=== PATIENT | male | born 1935 | race Caucasian/White ===

== ENCOUNTER 2017-07-08 20:07 | Inpatient (IN) ==
[2017-07-08] MEDS ORDERED: MORPHINE SULFATE 4mg INJECTION IM ONE (20:48)
[2017-07-08] MEDS ORDERED: ONDANSETRON ODT 4 MG TABLET PO ONE (20:48)
--- NOTE | 2017-07-08 20:53 | Emergency Department Report ---
Lower Extremity Injury HPI - General Chief Complaint: Extremity Injury, Lower Stated Complaint: poss broken hip pt fell Time Seen by Provider: 07/08/17 20:45 Source: patient Mode of arrival: wheelchair Limitations: no limitations - History of Present Illness HPI Narrative: 81yo man presents to the ER for left hip pain. Pt was trying to help prevent his from falling earlier tonight. In the process, pt fell himself. Now has left hip pain with any movement. Has a h/o right hip pain and prior fx with repair. MD complaint: hip injury Onset (ago): hour(s) Injury: Left: hip Type of Injury: blunt Place: home Severity: similar to previous episodes Severity scale (1-10): 8 Relieving factors: immobilization Exacerbating factors: movement Context: fall Associated symptoms: unable to bear weight Other symptoms: none - Related Data Home Medications Medication Instructions Recorded Confirmed Amlodipine Besylate [Norvasc] 2.5 mg PO BID #0 tab 11/22/13 07/08/17 Aspirin [Aspir 81] 81 mg PO DAILY #0 tab 11/22/13 07/08/17 Niacin (Inositol Niacinate) 1,000 mg PO BID 07/08/17 07/08/17 [Niacin 500 mg Capsule] Nitroglycerin 0.4 mg PO Q5M PRN 07/08/17 07/08/17 Pravastatin [Pravachol] 10 mg PO HS 07/08/17 07/08/17 Previous Rx's Medication Instructions Recorded Acetaminophen [Tylenol] 325 - 650 mg PO Q5H PRN tablet 07/12/17 Bisacodyl Supp [Dulcolax] 10 mg RECTALLY DAILY PRN supp 07/12/17 Calcium 600 + D [Caltrate + D] 1 tab PO BID tablet 07/12/17 Enoxaparin Sodium [Lovenox] 40 mg SQ DAILY syringe 07/12/17 Hydrocodone/APAP 5/325 [[place] 1 tab PO Q6H PRN tablet 07/12/17 5/325] Metoprolol Succinate (XL) [Toprol 12.5 mg PO DAILY tablet 07/12/17 Xl] Milk of Magnesia [Mom] 30 ml PO DAILY PRN udc 07/12/17 Minocycline [Minocin] 100 mg PO BID capsule 07/12/17 Niacin ER [Niaspan] 1,000 mg PO BID tablet 07/12/17 PEG 3350 17gm PACKET [Miralax] 17 gm PO DAILY packet 07/12/17 Senna + Docusate [Senna Plus 1 tab PO BID tablet 07/12/17 Tablet] Allergies Allergy/AdvReac Type Severity Reaction Status Date / Time No Known Allergies Allergy Verified 07/12/17 15:36 Review of Systems All systems: reviewed and negative except as stated Musculoskeletal: Reports: as per HPI, joint swelling, arthralgia. Denies: back pain, myalgia PFSH Patient Stated Medical History Dental Problems Yes Hypertension Yes Hx Kidney Stones Yes Clinic Medical History Intertrochanteric fracture of left femur (Acute Medical) IM nail left hip with short Gamma Nail by Dr Weiner 07/09/17. Atrial fibrillation (Acute Medical) Hypertension (Acute Medical) Coronary artery disease (Acute Medical) Dyslipidemia (Acute Medical) AVB (atrioventricular block) (Acute Medical) With syncope Osteopenia (Acute Medical) Presence of permanent cardiac pacemaker (Acute Medical) Hyperglycemia (Resolved Medical) S/p left hip fracture (Acute Medical) Left intertrochanteric fracture 07/08/17 Vaso vagal episode (Resolved Medical) Right hip fx Medical History Updates: CAD. HTN. HL. Angina Surgical History: Right hip repair - Social History Smoking status: Never smoker Physical Exam - Limitations Limitations: no limitations - General General appearance: alert, in no apparent distress - Normal Exams: Head:: Normocephalic without trauma Eyes:: Pupils are PERRLA w/ EOMI, No scleral icterus, irritation, or foreign bodies noted ENMT:: No facial trauma, nasal exudates, pharyngeal erythema, or exudates are noted Neck:: Full range of motion, without adenopathy Lymphatic:: No lymphadenopathy Integumentary:: No rashes, hives, or bruising noted Neurological:: Patient is alert, and oriented Psychiatric:: Patient exhibits, appropriate attention - Expanded Lower Extremity Exam Hip/Pelvis exam: Present: normal inspection, tenderness (Over greater trochanter ). Absent: full ROM, swelling, abrasion, laceration, ecchymosis, deformity, crepitus, dislocation, erythema, external rotation, internal rotation, shortening, pelvis stable Course - Consultations Consultation #1: Dr. Weiner: Get a CT of the hip; request admission to the hospitalist. Will see the pt as integrity consultant. Time: 21:30 Consultation #2: Vitor Telemed: Will admit pt. Time: 22:17 Vital Signs Temperature 98.4 F 07/08/17 20:18 Pulse Rate 102 H 07/08/17 20:18 Respiratory Rate 20 07/08/17 20:18 Blood Pressure 133/67 07/08/17 20:18 Pulse Oximetry 96 07/08/17 20:18 Temperature 97.8 F 07/12/17 12:00 Pulse Rate 95 07/12/17 12:00 Respiratory Rate 16 07/12/17 12:00 Blood Pressure 150/75 H 07/12/17 12:00 Pulse Oximetry 92 07/12/17 12:00 Extremity Injury, Lower - Differential Diagnosis Likely: fracture of femur (Pelvic fx, contusion), fracture of hip - Medical Records Attestation: I reviewed the patient's medical records. - Lab Data Result diagrams: 07/12/17 04:39 07/12/17 04:39 Lab Results 07/08/17 07/08/17 07/08/17 Range/Units 21:35 21:38 21:38 WBC 6.2 (4.5-11.0) T/MM3 RBC 4.85 (4.50-5.90) M/MM3 Hgb 14.3 (13.5-17.5) GM/DL Hct 42.4 (41-53) % MCV 87.4 (80-100) UM3 MCH 29.5 (26-34) UUG MCHC 33.7 (31-37) GM/DL RDW Std Deviation 41.5 (36.9-50.2) FL Plt Count 241 (130-400) T/MM3 MPV 8.7 L (9.4-12.4) UM3 Turbidity < 20 (0-20) Sodium 143 (134-144) MEQ/L Potassium 3.9 (3.6-5) MEQ/L Chloride 108 H (98-107) MEQ/L Carbon Dioxide 24 (22-30) MEQ/L Anion Gap 11 (5-15) MEQ/L BUN 24.0 H (9-20) MG/DL Creatinine 0.9 (0.8-1.5) MG/DL GFR Calculation 81 BUN/Creatinine Ratio 27 H (6-26) RATIO Glucose 170 H (75-110) MG/DL Calculated Osmolality 283 H (261-280) MOSM/KG Calcium 9.6 (8.4-10.2) MG/DL Icterus Index < 2 (0-7) Specimen Hemolysis < 15 (0-25) Blood Type A Positive Antibody Screen Negative - Radiology Data Attestation: I reviewed the patient's radiology results. Pelvis and Lt hip: Left intertrochanteric fx. No acute pelvic deformity. CXR: No acute CT pathology. CT Hip: FINDINGS: Bones/joints: Minimally displaced, oblique, intertrochanteric fracture, with apparent posterior intracapsular extension through base of femoral neck. Very slight posterior angulation of femoral head/neck, relative to femoral shaft. Soft tissues: Mild surrounding hemorrhage/edema. Moderate arterial calcification. Colonic diverticulosis. IMPRESSION: Minimally displaced intertrochanteric fracture of left femur, with apparent posterior intracapsular extension. - EKG Data EKG #1 EKG attestation: Yes: I reviewed and interpreted this EKG. EKG shows normal: axis, intervals, ST-T waves Rhythm: A.Fib, PVC's Disposition Clinical Impression: Intertrochanteric fracture of left femur Qualifiers: Encounter type: initial encounter Fracture type: closed Fracture alignment: nondisplaced Qualified Code(s): S72.145A - Nondisplaced intertrochanteric fracture of left femur, initial encounter for closed fracture Disposition: 02 To [facility] Condition: Stable Time of Disposition: 22:30 - Seen By: physician
--- OUTSIDE RECORDS SUMMARY | 2017-07-08 21:02 | External Medical Summary | Continuity of Care Document ---
:1935 Author Organization [facility] Allergies Medications Problems Date Dx Attending Type Code Diagnosis Diagnosed By Coded 12/05/2013 Dionna JACKSON, Final V54.89 ORTHOPEDIC Darby [facility] NEC 12/05/2013 Dionna JACKSON, Admitting 815.02 CLSD FX MC BASE Darby Cuadra NEC Procedures Results Encounters ACCT No. Visit Discharge Status Pt. Type Provider Facility Loc./Unit Complaint Date/Time [id number] 12/05/2013 12/05/2013 CLS Outpatient Dionna [facility] 5 09:00:00 23:59:59 , [facility]
[2017-07-08] MEDS: SALINE FLUSH 10ml SYRINGE IV PRN (21:39)
[2017-07-08] MEDS ORDERED: DOCUSATE SODIUM 100 MG CAPSULE PO PRN (23:04)
[2017-07-08] MEDS ORDERED: ONDANSETRON 4 MG/2 ML INJECTION IVP PRN (23:04)
[2017-07-08] MEDS ORDERED: NITROGLYCERIN 0.4 MG SUBLINGUAL TABLET SL PRN (23:04)
[2017-07-08 23:11] VITALS: BMI 24.7
[2017-07-08] MEDS ORDERED: HYDRALAZINE 20 MG/ML INJECTION IVP PRN (23:21)
--- NOTE | 2017-07-08 23:27 | History & Physical Report ---
<Mayo Morrell Mya - Last Filed: 07/08/17 23:23> History of Present Illness Date: 07/08/17 Chief complaint: left hip pain HPI: This is a 81 y/o male who was walking in the yard with his who is limited with a walker. She lost her balance and as she was falling he caught her and fell landing on his left hip. The patient had immediate pain and is brought to the ED where an x ray demonstrates a minimally displaced left intertrochanteric fracture The patient has a history of cardiac disease and possibly atrial fibrillation. He currently only takes an aspirin for protection. He does not have chest pain and is very active with over 8 MeTS of activity noted. The patient has been assessed pre op through the ED an Dr. Weiner was contacted and will see the pateint in the am. Review of Systems Review of systems: no headache, no change in vision, no sore throat, no neck or jaw pain no chest pain, no pnd, no orthopnea, no cough, no congestion, no change in activity level recently no abdomen pain, no nausea or vomiting, bowel movements unchanged, no urine problems no swelling to legs, no focal neuro complaints palomino to left leg with any movement. 12 point ROS otherwise neg except for what was described above. [facility] Clinic Medical History Intertrochanteric fracture of left femur (Acute Medical) Medical History Updates: CAD. HTN. HL. Angina. atrial fibrillation Surgical History: Right hip repair. CABG Family History: unknown at this time - Social History Smoking status: Never smoker Substance use type: does not use Alcohol intake frequency: does not drink Housing: house Household members: spouse Current occupational status: retired Does patient use chewing tobacco?: No Current residence: Apartment/Private Home Medications Home Medications Medication Instructions Recorded Confirmed Type Amlodipine Besylate [Norvasc] 2.5 mg PO BID #0 tab 11/22/13 07/08/17 History Aspirin [Aspir 81] 81 mg PO DAILY #0 tab 11/22/13 07/08/17 History Niacin (Inositol Niacinate) 1,000 mg PO BID 07/08/17 07/08/17 History [Niacin 500 mg Capsule] Nitroglycerin [Nitroglycerin] 0.4 mg PO Q5M PRN 07/08/17 07/08/17 History Pravastatin [Pravachol] 10 mg PO HS 07/08/17 07/08/17 History Allergies Allergy/AdvReac Type Severity Reaction Status Date / Time No Known Allergies Allergy Verified 07/08/17 20:53 Exam Vital Signs: Temperature 98.4 F 07/08/17 20:18 Pulse Rate 77 07/08/17 22:33 Respiratory Rate 18 07/08/17 22:33 Blood Pressure 149/74 H 07/08/17 22:33 Pulse Oximetry 95 07/08/17 22:33 Telemetry Rhythm: A-fib Height/Weight/BMI: Height 1.79 m Weight 79.2 kg Body Mass Index 24.7 - Constitutional Present: mild distress, well developed, average body habitus, cooperative - Routine HEENT Exam Head: Present: normocephalic, atraumatic Eye: Present: EOMI, PERRL ENT: Present: mucous membranes moist - Routine Neck Exam Present: supple, full ROM - Routine Respiratory Exam Present: CTA bilaterally - Routine Cardiovascular Exam Present: irregularly irregular - Routine Abdominal Exam Present: soft, non distended, non tender - Routine Extremities Exam Comments: not shortened left leg, did not move but is described as pain with any walking or movement in left upper leg - Routine Skin Exam Present: intact - Routine Neurological Exam Present: alert, normal reflexes, moving all extremities, normal speech. Absent : motor deficit, altered mental status, abnormal gait - Routine Psychiatric Exam Present: normal thought process Results - Labs CBC & Chem 7: 07/08/17 21:38 07/08/17 21:38 Labs: labs reviewed and are reassuring - Imaging and Cardiology Chest x-ray Additional comments: previous sternotomy but otherwise benign in appearance left hip/pelvis Additional comments: min displaced left intertroch fx Assessment and Plan (1) Intertrochanteric fracture of left femur Current visit: Yes Status: Acute (2) Atrial fibrillation Current visit: Yes Status: Acute (3) Hypertension Current visit: Yes Status: Acute (4) Coronary artery disease Current visit: Yes Status: Acute (5) Dyslipidemia Current visit: Yes Status: Acute Assessment and Plan: 1. Dr. Weiner will evaluate fracture in the am. pre op so far is reassuring with moderate risk identified pre operatively. Must review meds to determine if b bety or not. If b bety needs to administer prior to surgery. The patient should do fine with surgery. Typical post op considerations 2. EKG suggest possibility of atrial fib. Patient not clear that he does or doesn't have. on aspirin only. CHADSVASC score of 3 at this time would inform the need to anticoagulate if indeed in atrial fib. Will admit onto a tele bed and make further considerations 3. CAD chronic POA: at this time seems very stable. should not need risk stratification prior to surgery 4. HTN chronic POA: at this time the patient is hypertensive. is on norvasc based on what is available currently. odd medication with CAD and why not on b bety instead. anyway blood pressure is high. for now hydralazine iv prn , could consider iv metorpolol instead. 5. DVT ppx; SCD 6. hyperglycemia is noted on admission, probably stress related. repeat lab in the am and if continue elevated check a1c very nice patient. looks younger than his stated age DVT Prophylaxis: SCD's Resuscitation Status: Full Code - Time spent with patient Time with patient PN: 50 minutes Hospital Course Summary Disclaimer: The visit summary below is not to be considered part of the above Progress Note. <Jose Desir - Last Filed: 07/09/17 12:52> History of Present Illness Date: 07/09/17 [facility] Patient Stated Medical History Dental Problems Yes Cardiac Arrhythmia Yes: history A Fib Coronary Artery Disease Yes: s/p CABG x 3 30 years ago Hypertension Yes Sleep Apnea No Hx Kidney Stones Yes Clinic Medical History Intertrochanteric fracture of left femur (Acute Medical) Atrial fibrillation (Acute Medical) Hypertension (Acute Medical) Coronary artery disease (Acute Medical) Dyslipidemia (Acute Medical) Exam Vital Signs: Temperature 96.6 F L 07/09/17 10:22 Pulse Rate 88 07/09/17 11:52 Respiratory Rate 16 07/09/17 10:22 Blood Pressure 121/68 07/09/17 11:52 Pulse Oximetry 98 07/09/17 12:12 Height/Weight/BMI: Height 1.79 m Weight 79.2 kg Body Mass Index 24.7 Results - Labs CBC & Chem 7: 07/09/17 04:09 07/09/17 04:09 Assessment and Plan (1) Intertrochanteric fracture of left femur Current visit: Yes Status: Acute (2) Coronary artery disease Current visit: Yes Status: Acute (3) Atrial fibrillation Current visit: Yes Status: Acute (4) Hypertension Current visit: Yes Status: Acute (5) Dyslipidemia Current visit: Yes Status: Acute Assessment and Plan: Have independently interviewed and examined pt. Chart reviewed. Case discussed with Dr Weiner. Reviewed above note and concur. CC: Left hip pain post fall. HPI: 81 y/o WM present to [facility] via private vehicle secondary to left hip pain post fall injury. He and his were leaving a restaurant when she started to loose her footing. He attempted to help her keep from falling; was successful in preventing her fall, but unfortunately fell himself. He landed on his left hip with significant force. No loss of consciousness or head trauma. Did not feel dizzy or unsteady prior to fall. Severe pain with any movement-not able to get up without help. People there assisted patient and his up to chair and a friend too him to [facility] for evaluation. Car ride in very painful. In ED, found to have left hip fracture. Admitted for further evaluation and treatment. PHMx: CAD with CAGD about 30 years ago. Afib. HTN. HDL. Hx of right hip fracture secondary to fall trauma All: NKDA. Meds: ASA, Norvasc, Pravastatin, Niacin, NTG Shx: . No smoke. Active. Sees DR AMARILIS Villareal for cardiac care and Dr Gabbi Villareal for medical care. SHx: Mother did have heart diseased. in her 90s. Does not know of any familial diseases. ROS: as in HPI. Typical state of health before his injury. No f/c or recent viral syndrome. Breathing stable. No chest pressure or pain. Appetite stable. Does note some right shoulder pain since his fall, but denies other problems. Remainder of 10 point ROS discuss and negative. Exam GEN: [id number] awake and alert HEENT: NC/AT PERRLA EOMI MMM Neck: supple, midline, no tracheal deviation CV: regular Lungs: clear bilaterally, no distress AB: soft nt/nd +BS EXT: no c/c/e. SCDs in place Neuro: CN II-XII intact. No focal deficits. Psych: awake alert appropriate. Thoughts linear. Converses well. Skin: warm and dry. Assessment Closed post traumatic intertrochanteric fracture of left hip Fall secondary to loss of footing Hematuria CAD HTN HDL Afib Plan Inpatient admission to [facility] for definitive orthopedic treatment of hip fracture - anticipate greater than 2 midnights of care needed. Bedrest preop to minimize pain. Dilaudid for pain. Consult Dr Weiner for orthopedic evaluation and treatment options. SCD preop for DVT prevention, adding Lovenox post op. Metabolic Bone consult with Dr Galvez due to fracture. Check Vit D level. Will start oral Ca with vit D. Initial routine Senna Plus and Miralax to help decrease constipation. MOM and Dulcolax prn. IS for pulmonary toilet. PT/OT to help improve functional status. Full code as per his requests. Care to return to Dr Darby Villareal at time of discharge from [facility]. DVT Prophylaxis: Lovenox Hospital Course Summary Disclaimer: The visit summary below is not to be considered part of the above Progress Note. Hospital Course: 07/08/17 Inpatient admission Assessment Closed post traumatic intertrochanteric fracture of left hip Fall secondary to loss of footing Hematuria CAD HTN HDL Afib Plan Inpatient admission to [facility] for definitive orthopedic treatment of hip fracture - anticipate greater than 2 midnights of care needed. Bedrest preop to minimize pain. Dilaudid for pain. Consult Dr Weiner for orthopedic evaluation and treatment options. SCD preop for DVT prevention, adding Lovenox post op. NPO after midnight in anticipation of surgery tomorrow. Full code as per his requests. Care to return to Dr Darby Villareal at time of discharge from [facility]. 07/09/17 - OP DAY Patient tolerated surgery well. Metabolic Bone consult with Dr Galvez due to fracture. Check Vit D level. Will start oral Ca with vit D. Initial routine Senna Plus and Miralax to help decrease constipation. MOM and Dulcolax prn. IS for pulmonary toilet. PT/OT to help improve functional status. Full code as per his requests. Care to return to Dr Darby Villareal at time of discharge from [facility].
[2017-07-09] MEDS: NS 1,000 ML IV SCH ×5 (00:15→22:14)
[2017-07-09] MEDS: SALINE FLUSH 10ml SYRINGE IV PRN ×3 (00:16→00:52)
[2017-07-09] MEDS: MORPHINE SULFATE 4mg INJECTION IVP PRN ×2 (00:25→00:51)
[2017-07-09] MEDS: HYDROCODONE/APAP 5mg/325mg TABLET PO PRN ×3 (00:51→23:55)
--- NOTE | 2017-07-09 07:41 | Anesthesia Preoperative Report ---
Anesthesia Preoperative Record - Date and Time Date: 07/09/17 Preoperative Diagnosis: Fractured left hip NPO Since Date: 07/08/17 NPO Since Time: 00:00 Allergies/Adverse Reactions: Allergies Allergy/AdvReac Type Severity Reaction Status Date / Time No Known Allergies Allergy Verified 07/08/17 20:53 - Vital Signs Vital Signs: Temperature 97.6 F 07/09/17 07:08 Pulse Rate 69 07/09/17 07:08 Respiratory Rate 16 07/09/17 07:08 Blood Pressure 158/77 H 07/09/17 07:08 Pulse Oximetry 93 07/09/17 07:08 Height and Weight: Height 1.79 m Weight 79.2 kg Body Mass Index 24.7 - Medications Inpatient Medications: Current Medications Acetaminophen (Tylenol) 325 - 650 mg PO Q5H PRN PRN Reason: Discomfort Hydrocodone Bitart/Acetaminophen ([place] 5/325) 1 tab PO Q6H PRN PRN Reason: Pain Last Admin: 07/09/17 00:51 Dose: 1 tab Docusate Sodium (Colace) 100 mg PO BID PRN Hydralazine HCl (Apresoline) 10 mg IVP Q4H PRN PRN Reason: FOR SBP > 160, &/or DBP > 90 Sodium Chloride (Normal Saline) 1,000 mls @ 100 mls/hr IV .Q10H JOHN Last Infusion: 07/09/17 04:30 Dose: 100 mls/hr Morphine Sulfate (Morphine Sulfate Inj) 2 - 4 mg IVP Q2H PRN PRN Reason: Pain Last Admin: 07/09/17 00:51 Dose: 2 mg Nitroglycerin (Nitrostat) 0.4 mg SL Q5M PRN PRN Reason: Chest pain Ondansetron HCl (Zofran) 4 mg IVP Q6H PRN PRN Reason: Nausea &/or vomiting Sodium Chloride (Iv Flush) 10 ml IV O PRN PRN Reason: Flushing Last Admin: 07/09/17 00:52 Dose: 10 ml Home Medications: Home Medications Medication Instructions Recorded Confirmed Type Amlodipine Besylate [Norvasc] 2.5 mg PO BID #0 tab 11/22/13 07/08/17 History Aspirin [Aspir 81] 81 mg PO DAILY #0 tab 11/22/13 07/08/17 History Niacin (Inositol Niacinate) 1,000 mg PO BID 07/08/17 07/08/17 History [Niacin 500 mg Capsule] Nitroglycerin [Nitroglycerin] 0.4 mg PO Q5M PRN 07/08/17 07/08/17 History Pravastatin [Pravachol] 10 mg PO HS 07/08/17 07/08/17 History Is Patient on Beta Max?: No - Medical History Cardiovascular: Reports: Abnormal EKG, Arrhythmia (history A Fib), Coronary Artery Disease (s/p CABG x 3 30 years ago), Hypertension - Surgical History HEENT Surgeries: Reports: Tonsillectomy Cardiac Surgeries/Treatments: Reports: Cardiac Catheterization, Coronary Artery Bypass Graft Musculoskeletal Surgery/Tx: Reports: Other (hip fx 2003 plate and screws) Anesthesia Reactions: None Hx Family Anesthesia Reaction: No History of Motion Sickness: No - Social History Smoking Status: Never smoker Hx Chewing Tobacco Use: No Second Hand Exposure: No Substance Use Type: does not use Alcohol Intake Frequency: does not drink - Pertinent Findings Laboratory: CBC and BMP 07/09/17 04:09 07/09/17 04:09 BMP 07/09/17 04:09 Sodium 141 Potassium 3.8 Chloride 108 H Carbon Dioxide 24 BUN 19.0 Creatinine 0.8 Glucose 124 H Calcium 9.1 Urine 07/09/17 Range/Units 00:56 Urine Color [place] (YELLOW) Urine Clarity Sl cloudy Urine pH 7.0 (5.0-8.0) Ur Specific [place] 1.015 (1.015-1.025) Urine Protein Trace A (NEGATIVE) Urine Glucose (UA) Trace A (NEGATIVE) EKG: Second Degree AV Block Type I - [place] - Physical Exam Respiratory Exam: Present: lungs clear Cardiovascular Exam: Present: irregularly irregular - Airway Assessment Mallampati Score: II TMD: 3 Fingerbreadths Neck Extension: fair Teeth: chipped teeth/crowns, poor dentation Overall Assessment: no airway concerns - ASA ASA Score: 3 - Plan Anesthesia: General TIVA, General Inhalation Gases - Discussion Discussion: Discussed risks/options/alternatives of anesthesia and questions answered. Patient consents. Nursing pain assessment noted. Present for Discussion: family member, friend Attestation Statement: Prior to the delivery of any anesthetic medication, I examined the patient, developed the plan, obtained the patient's consent and discussed the risk and benefits of the procedure with the patient/guardian. - Additional Information Seen by Anesthesia: Yes
[2017-07-09] MEDS ORDERED: LIDOCAINE 1% (10mg/ml) 30ml SDV INJ ONE (07:42)
[2017-07-09] MEDS ORDERED: BUPIVACAINE 0.25% (2.5mg/ml) PF 30ml INJECTION ONE (07:42)
[2017-07-09] MEDS ORDERED: FentaNYL 100 MCG/2 ML INJECTION ONE (07:48)
[2017-07-09] MEDS ORDERED: KETAMINE 500 MG/10 ML INJECTION ONE (07:49)
[2017-07-09] MEDS ORDERED: PROPOFOL 500 MG/50 ML VIAL IV ONE (07:49)
[2017-07-09] MEDS ORDERED: PROPOFOL 20 ML ONE (07:50)
[2017-07-09] MEDS ORDERED: GLYCOPYRROLATE 0.4 MG/2 ML INJECTION ONE (07:51)
--- NOTE | 2017-07-09 08:14 | Orthopedic Consult Note ---
Orthopedic Consultation HPI - Consultation Info Consult Date: 07/09/17 Attending Physician: Jose Desir MD Consult Reason: fracture - History of Present Illness Mr. Liang is a kind 81-year-old gentleman was walking with his yesterday. She started to fall and he tried to catch her and then fell onto his left hip. He was brought in to the emergency room here [facility] and found to have a minimally displaced intertrochanteric hip fracture on the left. He is admitted to the hospitalist service and I was consult to for further care of his left hip fracture. He had a similar injury in his right hip in 2002 which was fixed with a cephalo-medullary nail. He states he's done well from that surgery. Review of Systems - Constitutional Constitutional: Absent: chills, fever(s), night sweats - Cardiovascular Cardiovascular: Absent: chest pain, palpitations - Respiratory Respiratory: Absent: cough, dyspnea - Gastrointestinal Gastrointestinal: Absent: abdominal pain, nausea, vomiting - Musculoskeletal Musculoskeletal: Present: as per HPI - Integumentary/Breasts Integumentary: Absent: lesions, rash - Neurological Neurological: Absent: numbness, tingling PFS Patient Stated Medical History Dental Problems Yes Cardiac Arrhythmia Yes: history A Fib Coronary Artery Disease Yes: s/p CABG x 3 30 years ago Hypertension Yes Sleep Apnea No Hx Kidney Stones Yes Clinic Medical History Intertrochanteric fracture of left femur (Acute Medical) Atrial fibrillation (Acute Medical) Hypertension (Acute Medical) Coronary artery disease (Acute Medical) Dyslipidemia (Acute Medical) Medical History Updates: CAD. HTN. HL. Angina. atrial fibrillation Surgical History: Right hip repair. CABG - Social History Smoking status: Never smoker Does patient use chewing tobacco?: No Medications Home Medications Medication Instructions Recorded Confirmed Type Amlodipine Besylate [Norvasc] 2.5 mg PO BID #0 tab 11/22/13 07/08/17 History Aspirin [Aspir 81] 81 mg PO DAILY #0 tab 11/22/13 07/08/17 History Niacin (Inositol Niacinate) 1,000 mg PO BID 07/08/17 07/08/17 History [Niacin 500 mg Capsule] Nitroglycerin [Nitroglycerin] 0.4 mg PO Q5M PRN 07/08/17 07/08/17 History Pravastatin [Pravachol] 10 mg PO HS 07/08/17 07/08/17 History Allergies Allergy/AdvReac Type Severity Reaction Status Date / Time No Known Allergies Allergy Verified 07/08/17 20:53 Orthopedic Exam Vital signs: Temperature 97.6 F 07/09/17 07:08 Pulse Rate 70 07/09/17 07:50 Respiratory Rate 16 07/09/17 07:08 Blood Pressure 158/77 H 07/09/17 07:08 Pulse Oximetry 93 07/09/17 07:08 - Constitutional General Appearance: Present: no acute distress, well developed, well nourished - Respiratory Exam Present: non-labored - Cardiovascular Exam Present: pedal pulses intact - Integumentary Exam Present: pink, warm, dry - Neurological Exam Present: intact to light touch - Psychiatric Exam Present: alert, normal affect - Labs Result Diagrams: 07/09/17 04:09 07/09/17 04:09 Abnormal lab results 07/09/17 07/09/17 07/09/17 Range/Units 00:56 04:09 04:09 Hct 40.9 L (41-53) % MPV 9.1 L (9.4-12.4) UM3 Neut % (Auto) 73.9 H (33-66) % Lymph % (Auto) 14.8 L (23-45) % Wise % (Auto) 10.1 H (0-9.0) % Chloride 108 H (98-107) MEQ/L Glucose 124 H (75-110) MG/DL Urine Protein Trace A (NEGATIVE) Urine Glucose (UA) Trace A (NEGATIVE) Urine Occult Blood 3+ A (NEGATIVE) H & H 07/09/17 Range/Units 04:09 Hgb 13.5 (13.5-17.5) GM/DL Hct 40.9 L (41-53) % - Diagnostic results Hip x-ray: image reviewed Hip CT: image reviewed Impression and Recommendation (1) Intertrochanteric fracture of left femur Current visit: Yes Qualifiers: Encounter type: initial encounter Fracture type: closed Fracture alignment: nondisplaced Qualified Code(s): S72.145A - Nondisplaced intertrochanteric fracture of left femur, initial encounter for closed fracture Status: Acute I reviewed the injury with Mr. Liang and his family. I recommended fixation of the left hip with a subtle medullary device. Reviewed within the surgery and the risks and benefits as well as the expected postoperative course. They agree with this plan surgery will be this morning. Hospital Course Summary Disclaimer: The visit summary below is not to be considered part of the above Progress Note.
[2017-07-09] MEDS ORDERED: PHENYLEPHRINE INJ 10 MG/ML VIAL IV ONE (08:40)
[2017-07-09] MEDS ORDERED: SALINE FLUSH 10ml SYRINGE ONE (08:41)
--- NOTE | 2017-07-09 08:45 | XRay Report ---
Indication: Hip fx PROCEDURE: XR chest 1V: Encounter: Initial Comparison: None FINDINGS: The lungs are clear. There is no abnormal airspace opacity, pleural effusion or pneumothorax identified. Eventration of the right hemidiaphragm. Prior CABG. Heart size is normal. Pulmonary vascularity is normal. No significant skeletal abnormality is seen. IMPRESSION: No acute cardiopulmonary abnormality. .
[2017-07-09] MEDS ORDERED: CEFAZOLIN 1 G INJECTION IVP ONE (08:48)
--- NOTE | 2017-07-09 08:48 | XRay Report ---
Indication: Fall tonight with left hip pain PROCEDURE: XR pelvis w/ 2 view LT hip: Encounter: Initial Comparison: None Findings: Minimally displaced fracture of the intertrochanteric left femur. No additional acute fracture or dislocation seen. Intramedullary johnnie in the right femur. Impression: Closed posttraumatic intertrochanteric left femoral fracture. .
[2017-07-09] MEDS ORDERED: FentaNYL 250 MCG/5 ML INJECTION ONE (08:51)
[2017-07-09] MEDS ORDERED: BUPIV 0.25% 30ml/LIDO 1% 30ml MIXTURE ID ONE (08:51)
[2017-07-09] MEDS: HYDROMORPHONE 2 MG/ML INJECTION IVP PRN ×2 (09:47→09:57)
--- NOTE | 2017-07-09 09:51 | Remote Fluorsocopy Report ---
Indication: ORIF LEFT HIP FX PROCEDURE: RF hip LT 2 view: Encounter: Initial Comparison: Pelvis radiographs dated July 08, 2017 Findings: Four fluoroscopic spot images show open reduction and internal fixation of the left femoral fracture with placement of intermedullary nail and compression screw. Distal interlocking screw. Impression: Fluoroscopy as above. Fluoroscopy time is 78 seconds. Fluoroscopy dose is 1740 mRad. .
--- NOTE | 2017-07-09 10:04 | CT Scan Report ---
Indication: Left femoral neck fracture PROCEDURE: CT hip LT wo con: Encounter: Initial Comparison: Left hip radiographs from the same time Technique: Axial noncontrast CT imaging to the left hip was performed with coronal and sagittal two-dimensional reformats. Three-dimensional surface shaded volume rendered imaging was also created and reviewed. Automated Exposure Control and Iterative Reconstruction dose reducing techniques were utilized. Findings: Redemonstration of the intertrochanteric left femoral fracture which is very minimally displaced. This extends into the greater trochanter posteriorly. No additional acute fracture. No dislocation. There is overlying soft tissue swelling without evidence of significant intramuscular or pelvic hematoma. Bladder is distended. Impression: Intertrochanteric left femoral neck fracture. There is a preliminary report by [facility]. .
--- NOTE | 2017-07-09 10:04 | Anesthesia Postoperative Note ---
- Date and Time Date: 07/09/17 Time: 10:03 - Status Patient Participated in Evaluation: Patient Participated in Person Vital Signs: Temperature 97.9 F 07/09/17 09:20 Pulse Rate 49 L 07/09/17 10:00 Respiratory Rate 15 07/09/17 10:00 Blood Pressure 120/57 07/09/17 10:00 Pulse Oximetry 98 07/09/17 10:00 Respiratory Function: Airway Patent, Regular Respirations Cardiovascular Function: Regular Pulse Mental Status: Alert and Oriented Pain Intensity: 5 Hydration: IV Infusing Complications During Recover: None Apparent - Follow-Up Instructions Instructions: Per Surgeon
[2017-07-09] MEDS ORDERED: BISACODYL 10 MG SUPPOSITORY RECTALLY PRN (11:42)
[2017-07-09] MEDS: ACETAMINOPHEN 325 MG TABLET PO PRN (12:07)
[2017-07-09] MEDS: CEFAZOLIN 1 G in NS 100 ML IV SCH (16:42)
[2017-07-09] MEDS: AMLODIPINE 2.5 MG TABLET PO SCH (20:46)
[2017-07-09] MEDS: SENNA + DOCUSATE TABLET PO SCH (20:46)
[2017-07-09] MEDS: NIACIN ER 500 MG TABLET PO SCH (20:46)
[2017-07-09] MEDS: PRAVASTATIN 10 MG TABLET PO SCH (20:46)
[2017-07-09] MEDS: CALCIUM 600 + VIT D 400 TABLET PO SCH (20:46)
[2017-07-10] MEDS: CEFAZOLIN 1 G in NS 100 ML IV SCH (00:01)
--- NOTE | 2017-07-10 07:54 | Operative Note ---
DATE OF PROCEDURE 07/09/2017 PREOPERATIVE DIAGNOSIS Left two-part intertrochanteric hip fracture. POSTOPERATIVE DIAGNOSIS Left two-part intertrochanteric hip fracture. PROCEDURE Cephalomedullary fixation of left intertrochanteric hip fracture. SURGEON Jose Weiner MD ANESTHESIA TIVA COMPLICATIONS None. DESCRIPTION OF PROCEDURE Mr. Liang and his left hip were identified and marked in his hospital room bed. He was brought back to the operating suite and placed under general anesthesia using IV only. An LMA was placed. He was then transferred to the fracture table and both feet were placed in well-padded traction boots. The left leg was placed into neutral position with traction. The right leg was placed into extension without traction. The left lower extremity was then prepped and draped in my normal sterile fashion. Time-out was performed. A 2 cm incision was made superior to the greater trochanter. The greater trochanter was then opened over a guide johnnie. I then selected a short gamma nail , 11 mm in diameter, and it was placed into the proximal femur through the opening using an aiming arm. A lag screw was then placed through a 1 cm incision into a center-center location to the femoral head over a guidewire. This was a 100 mm screw. A compression device was used to provide compression at the fracture site and the leg traction was let down. The screw was then locked proximally. I then placed a locking screw distally, again using the aiming arm. This was a 40 mm screw. The aiming arm was then removed. Multiple fluoroscopic images were taken throughout the case to ensure proper hardware placement and fracture reduction. The wounds were all thoroughly irrigated with normal saline and closed in layers. A sterile dressing was then placed. The drapes were removed. He was allowed to awaken from general anesthesia and transferred back to his hospital room bed. He was then taken to the Recovery Room under the care of Anesthesia. He tolerated the procedure well. There were no complications. BRENNEN
--- NOTE | 2017-07-10 08:07 | Orthopedic Progress Note ---
Date: Subjective/Severity of Illness: Mr Liang is getting ready to get up for the first time since surgery. He denies SOA, cough, CP or any breathing issues. PT / OT is in the room to work with him now. Orthopedic Objective PO Vital signs: Temperature 98.5 F 07/10/17 07:33 Pulse Rate 108 H 07/10/17 07:37 Respiratory Rate 12 07/10/17 07:33 Blood Pressure 133/74 07/10/17 07:33 Pulse Oximetry 94 07/10/17 07:33 Height and Weight: Height 5 ft 10.5 in Weight 174 lb 9.698 oz Body Mass Index 24.7 - Constitutional General Appearance: Present: alert, no acute distress, well developed, well nourished - Respiratory Exam Present: non-labored - Cardiovascular Exam Present: pedal pulses intact - Extremities Exam Extremities: Present: pulses intact. Absent: calf tenderness - Surgical Site Incision: dressing intact, no drainage - Integumentary Exam Present: pink, warm, dry - Neurological Exam Present: no deficits - Psychiatric Exam Present: alert, normal affect - Labs Result Diagrams: 07/10/17 04:09 07/10/17 04:09 Abnormal lab results 07/10/17 07/10/17 Range/Units 04:09 04:09 RBC 3.88 L (4.50-5.90) M/MM3 Hgb 11.2 L D (13.5-17.5) GM/DL Hct 34.5 L D (41-53) % MPV 9.0 L (9.4-12.4) UM3 Neut % (Auto) 69.4 H (33-66) % Lymph % (Auto) 20.1 L (23-45) % Chloride 108 H (98-107) MEQ/L Creatinine 0.7 L (0.8-1.5) MG/DL Total Protein 5.6 L (6.3-8.2) G/DL Albumin 2.9 L (3.5-5.0) G/DL H & H 07/09/17 07/10/17 Range/Units 04:09 04:09 Hgb 13.5 11.2 L D (13.5-17.5) GM/DL Hct 40.9 L 34.5 L D (41-53) % Orthopedic Assessment and Plan (1) Intertrochanteric fracture of left femur Status: Acute Qualifiers: Encounter type: initial encounter Fracture type: closed Fracture alignment: nondisplaced Qualified Code(s): S72.145A - Nondisplaced intertrochanteric fracture of left femur, initial encounter for closed fracture Assessment and Plan: IM nail left hip with short Gamma Nail by Dr Weiner 07/09/17. WBAT F/U with Phillip JACQUES 07/24/17 @ 2PM. Lovenox x 30d for VTE prevention. SCDs and early mobilization for added coverage. - Anticoagulation Therapy Anticoagulation: Lovenox 40 mg SQ Daily x 30 days from day of surgery Hospital Course Summary Disclaimer: The visit summary below is not to be considered part of the above Progress Note. Hospital Course: 07/08/17 Inpatient admission Assessment Closed post traumatic intertrochanteric fracture of left hip Fall secondary to loss of footing Hematuria CAD HTN HDL Afib Plan Inpatient admission to [facility] for definitive orthopedic treatment of hip fracture - anticipate greater than 2 midnights of care needed. Bedrest preop to minimize pain. Dilaudid for pain. Consult Dr Weiner for orthopedic evaluation and treatment options. SCD preop for DVT prevention, adding Lovenox post op. NPO after midnight in anticipation of surgery tomorrow. Full code as per his requests. Care to return to Dr Darby Villareal at time of discharge from [facility]. 07/09/17 - OP DAY Patient tolerated surgery well. Metabolic Bone consult with Dr Galvez due to fracture. Check Vit D level. Will start oral Ca with vit D. Initial routine Senna Plus and Miralax to help decrease constipation. MOM and Dulcolax prn. IS for pulmonary toilet. PT/OT to help improve functional status. Full code as per his requests. Care to return to Dr Darby Villareal at time of discharge from [facility].
--- NOTE | 2017-07-10 08:16 | Progress Note ---
<Alina Rincon D - Last Filed: 07/10/17 08:12> - Date 07/10/17 Subjective: Davon just had a syncopal episode - PT/OT were at bedside to stand him and transfer him to the chair for the first time. After standing up, he complained of feeling dizzy, and staff immediately helped him into the chair, where he lost consciousness for approx 20-30 seconds. He woke up and was quickly A&O x3 and at baseline - denied SOA or chest pain. No nausea or vomiting. He felt sweaty in his arms. He admits a hx of syncope but its been several years ago. Objective Vital signs: Temperature 98.5 F 07/10/17 07:33 Pulse Rate 108 H 07/10/17 07:37 Respiratory Rate 12 07/10/17 07:33 Blood Pressure 133/74 07/10/17 07:33 Pulse Oximetry 94 07/10/17 07:33 Height/Weight/BMI: Height 1.79 m Weight 79.2 kg Body Mass Index 24.7 Comments: Strips reviewed: 0622 - Mobitz type II 0803 - Mobitz type I vs II with HR of 38 0805 - Mobitz type I with occ PVC 0811 - NSR with 1st deg AVB 0812 - EKG - sinus with 1st deg AVB & conduction delay; LVH; no ST elev or dep; nml axis - Constitutional Present: other (initially was pale and diaphoretic and drowsy; these symptoms quickly resolved) - Routine HEENT Exam Head: Present: normocephalic Eye: Present: PERRL. Absent: conjunctival icterus ENT: Present: mucous membranes moist, oropharynx clear - Routine Respiratory Exam Present: CTA bilaterally - Routine Cardiovascular Exam Present: S1, S2, irregular rhythm - Routine Abdominal Exam Present: soft, normoactive bowel sounds, non tender - Routine Exam Comments: Edouard - hematuria - Routine Extremities Exam Present: no edema - Routine Musculoskeletal Exam Musculoskeletal: Present: moving extremities well - Routine Skin Exam Present: pallor - Routine Neurological Exam Present: alert, oriented X3, CN II-XII intact, normal speech - Routine Psychiatric Exam Present: normal affect, normal thought process, cooperative Results - Labs CBC & Chem 7: 07/10/17 04:09 07/10/17 04:09 Assessment and Plan (1) Intertrochanteric fracture of left femur Current visit: Yes Status: Acute (2) Atrial fibrillation Current visit: Yes Status: Acute (3) Hypertension Current visit: Yes Status: Acute (4) Coronary artery disease Current visit: Yes Status: Acute (5) Dyslipidemia Current visit: Yes Status: Acute (6) AVB (atrioventricular block) Current visit: Yes Status: Acute Assessment and Plan: Assessment Syncope AVB with 2:1 conduction Closed post traumatic intertrochanteric fracture of left hip Fall secondary to loss of footing Hematuria mild ABLA CAD HTN HDL Afib Plan S/P syncopal event - strips/EKG reviewed; d/w Dr. Echavarria - will see today; poss PPM tomorrow. No BB on board. Serial trop + echo ordered. Request records from Dr. Villareal. Hgb - mild drop to 11.2. Chem stable. DVT Prophylaxis: Lovenox Resuscitation Status: Full Code Hospital Course Summary Disclaimer: The visit summary below is not to be considered part of the above Progress Note. Hospital Course: 07/08/17 Inpatient admission Assessment Closed post traumatic intertrochanteric fracture of left hip Fall secondary to loss of footing Hematuria CAD HTN HDL Afib Plan Inpatient admission to [facility] for definitive orthopedic treatment of hip fracture - anticipate greater than 2 midnights of care needed. Bedrest preop to minimize pain. Dilaudid for pain. Consult Dr Weiner for orthopedic evaluation and treatment options. SCD preop for DVT prevention, adding Lovenox post op. NPO after midnight in anticipation of surgery tomorrow. Full code as per his requests. Care to return to Dr Darby Villareal at time of discharge from [facility]. 07/09/17 - OP DAY Patient tolerated surgery well. Metabolic Bone consult with Dr Galvez due to fracture. Check Vit D level. Will start oral Ca with vit D. Initial routine Senna Plus and Miralax to help decrease constipation. MOM and Dulcolax prn. IS for pulmonary toilet. PT/OT to help improve functional status. Full code as per his requests. Care to return to Dr Darby Villareal at time of discharge from [facility]. 07/10/17 Assessment Syncope AVB with 2:1 conduction Closed post traumatic intertrochanteric fracture of left hip Fall secondary to loss of footing Hematuria mild ABLA CAD HTN HDL Afib Plan S/P syncopal event - strips/EKG reviewed; d/w Dr. Echavarria - will see today; poss PPM tomorrow. No BB on board. Serial trop + echo ordered. Request records from Dr. Villareal. Hgb - mild drop to 11.2. Chem stable. <ThangGarcia D - Last Filed: 07/10/17 12:53> - Date 07/10/17 Objective Vital signs: Temperature 98.1 F 07/10/17 12:31 Pulse Rate 105 H 07/10/17 12:31 Respiratory Rate 20 07/10/17 12:31 Blood Pressure 113/65 07/10/17 12:31 Pulse Oximetry 98 07/10/17 12:31 Height/Weight/BMI: Height 1.79 m Weight 79.2 kg Body Mass Index 24.7 Results - Labs CBC & Chem 7: 07/10/17 04:09 07/10/17 04:09 Assessment and Plan (1) Intertrochanteric fracture of left femur Current visit: Yes Status: Acute (2) Atrial fibrillation Current visit: Yes Status: Acute (3) Hypertension Current visit: Yes Status: Acute (4) Coronary artery disease Current visit: Yes Status: Acute (5) Dyslipidemia Current visit: Yes Status: Acute (6) AVB (atrioventricular block) Current visit: Yes Status: Acute Assessment and Plan: Assessment Closed post traumatic intertrochanteric fracture of left hip Fall secondary to loss of footing Syncope (not POA) AVB with 2:1 conduction (Not POA) Hematuria Mild ABLA CAD HTN HDL Afib Have independently interviewed and examined pt. Chart reviewed. Case discussed with CM and my [employer]. Care plan developed with my supervision; agree with above. Rough morning-was getting up and the next thing he knew he was sitting back in chair. Has syncopal event. Denies any palpitations or chest discomfort. Feels breathing has been doing well. Pain control. Therapy going okay-leg feels sore and is hard to move. Lungs: clear CV: regular MSE: awake alert appropriate Plan: Dr Echavarria consulted secondary to syncope and heart block - plans pacemaker placement tomorrow. Echo ordered. Continue with pain control. Monitor blood counts. CM looking into post discharge disposition. Hospital Course Summary Disclaimer: The visit summary below is not to be considered part of the above Progress Note.
[2017-07-10] MEDS: ASPIRIN *EC* 81 MG TABLET PO SCH (08:24)
[2017-07-10] MEDS: NIACIN ER 500 MG TABLET PO SCH ×2 (08:24→20:35)
[2017-07-10] MEDS: AMLODIPINE 2.5 MG TABLET PO SCH ×2 (08:24→20:33)
[2017-07-10] MEDS: ENOXAPARIN 40 MG/0.4 ML INJECTION SQ SCH (08:24)
[2017-07-10] MEDS: SENNA + DOCUSATE TABLET PO SCH ×2 (08:24→20:34)
[2017-07-10] MEDS: CALCIUM 600 + VIT D 400 TABLET PO SCH ×2 (08:24→20:35)
[2017-07-10] MEDS: POLYETHYL GLYCOL 3350 17gm PACKET PO SCH (08:24)
[2017-07-10] MEDS: NS 1,000 ML IV SCH ×2 (08:54→19:10)
--- NOTE | 2017-07-10 13:07 | Cardiology Consult Note ---
History of Present Illness Chief complaint: bradycardia ,syncope History of present illness: Plan Mr. Liang is a very pleasant and active 81-year-old male with history of remote CABG times 3 in 1986 and followed a small [place]. He is a patient of Dr. Villareal his last stress test in December of this year was reportedly normal patient does not recall having a heart catheterization for many years perhaps going back as a far as back as the time of his CABG. He is usually active frequently mowed his on a lawn which typically takes an hour and a half and denies exertional angina dyspnea palpitations or previous dizziness or syncope. As recently as last week he worked in his yard for about 2 hours including about 45 minutes of pushing self-propelled mower without the angina or dyspnea. He also cut tree brushes. Mr. Liang who presented to the emergency room on Monday following a non- syncopal fall, there were at bread and basket having a meal when his starts walking in front of him and looking unsteady and about to fall, he got up and reached over in a way that made her fall down on him and he hit the floor kind of hard and realized that he broke something. He did not lose consciousness and denies feeling dizzy or palpitations or chest pain. Patient underwent hip fracture repair on Monday has been receiving subcutaneous Lovenox and aspirin. This morning as he was trying to work with therapy, he got up from the chair and immediately felt fuzzy and dizzy in his head then briefly passed out next thing he knew he was sitting in the chair, there was was 20 seconds later according to his nurse. He also felt clammy but denies chest pain or palpitations. His heart rate was noted to be in the 30s according to his nurse. His heart rate has been running in the 100s .Primary service kindly have asked me to see the patient in cardiology consultation. Patient has not had further dizzy spells is currently sitting up in chair appears comfortable. His EKG does not show acute changes troponin from 4 AM and has a negative repeat is pending echocardiogram showed good LV function and no significant valvular dysfunction. He is not on any beta bety or other AV carina blocking agents. He denies any fever or chills he was getting IV antibiotics preoperatively but have been stopped his white count is normal. He is a getting Lovenox and has SCDs on his legs. He has a Edouard catheter in place with a dark bloody urine A due to traumatic passage of the catheter and anticoagulant more. UA did not show white cells Review of Systems All systems PM: 10-point ROS was reviewed, no additional remarkable complaints except - Gastrointestinal Gastrointestinal: Present: constipation (no bowel movements since admission) [facility] Patient Stated Medical History Dental Problems Yes Cardiac Arrhythmia Yes: history A Fib Coronary Artery Disease Yes: s/p CABG x 3 30 years ago Hypertension Yes Sleep Apnea No Hx Kidney Stones Yes Clinic Medical History Intertrochanteric fracture of left femur (Acute Medical) Atrial fibrillation (Acute Medical) Hypertension (Acute Medical) Coronary artery disease (Acute Medical) Dyslipidemia (Acute Medical) AVB (atrioventricular block) (Acute Medical) Medical History Updates: CAD. HTN. HL. Angina Surgical History: Right hip repair. CABG 3 with a small [place] 1986 - Social History Smoking status: Never smoker Substance use type: does not use Current residence: Apartment/Private Home Medications Home Medications Medication Instructions Recorded Confirmed Type Amlodipine Besylate [Norvasc] 2.5 mg PO BID #0 tab 11/22/13 07/08/17 History Aspirin [Aspir 81] 81 mg PO DAILY #0 tab 11/22/13 07/08/17 History Niacin (Inositol Niacinate) 1,000 mg PO BID 07/08/17 07/08/17 History [Niacin 500 mg Capsule] Nitroglycerin 0.4 mg PO Q5M PRN 07/08/17 07/08/17 History Pravastatin [Pravachol] 10 mg PO HS 07/08/17 07/08/17 History Allergies Allergy/AdvReac Type Severity Reaction Status Date / Time No Known Allergies Allergy Verified 07/12/17 15:36 Exam Vital signs: Temperature 98.1 F 07/10/17 12:31 Pulse Rate 105 H 07/10/17 12:31 Respiratory Rate 20 07/10/17 12:31 Blood Pressure 113/65 07/10/17 12:31 Pulse Oximetry 98 07/10/17 12:31 - Constitutional no acute distress - Routine HEENT Exam Head: Present: normocephalic, atraumatic Eye: Present: EOMI, PERRL ENT: Present: mucous membranes moist - Routine Neck Exam Present: normal carotid upstroke. Absent: JVD, carotid bruit, lymphadenopathy, thyromegaly - Routine Chest/Breast/Axilla Exam Chest wall: Absent: tenderness - Routine Respiratory Exam Present: CTA bilaterally - Routine Cardiovascular Exam Present: RRR, S1, S2 (normal). Absent: no murmur, gallop, bradycardia, irregular rhythm - Routine Abdominal Exam Present: soft, distended (mildly). Absent: normoactive bowel sounds (decreased bowel sounds), rebound, guarding, firm, rigid - Routine Extremities Exam Present: no edema, normal capillary refill. Absent: cyanosis, clubbing, edema - Routine Neurological Exam Present: alert, oriented X3, CN II-XII intact, moving all extremities, vision grossly intact, hearing grossly intact, normal speech. Absent: motor deficit, facial asymmetry - Routine Psychiatric Exam Present: normal affect, cooperative, good insight, good judgment Results 07/12/17 04:39 07/12/17 04:39 Cardiac Enzymes 07/10/17 07/10/17 Range/Units 04:09 04:09 AST 35 (17-59) U/L Troponin I 0.037 (0-0.12) ng/ml CBC 07/10/17 Range/Units 04:09 WBC 7.2 (4.5-11.0) T/MM3 RBC 3.88 L (4.50-5.90) M/MM3 Hgb 11.2 L D (13.5-17.5) GM/DL Hct 34.5 L D (41-53) % Plt Count 185 (130-400) T/MM3 Neut # (Auto) 5.0 (1.8-7.7) T/MM3 Lymph # (Auto) 1.5 (1-4.8) T/MM3 [place] # (Auto) 0.5 (0-0.8) T/MM3 Eos # (Auto) 0.2 (0-0.5) T/MM3 Baso # (Auto) 0.0 (0-0.2) T/MM3 Comprehensive Metabolic Panel 07/10/17 Range/Units 04:09 Sodium 138 (134-144) MEQ/L Potassium 3.9 (3.6-5) MEQ/L Chloride 108 H (98-107) MEQ/L Carbon Dioxide 25 (22-30) MEQ/L BUN 13.0 (9-20) MG/DL Creatinine 0.7 L (0.8-1.5) MG/DL Glucose 109 (75-110) MG/DL Calcium 8.4 (8.4-10.2) MG/DL AST 35 (17-59) U/L ALT 38 (21-72) U/L Alkaline Phosphatase 39 (38-126) U/L Total Protein 5.6 L (6.3-8.2) G/DL Albumin 2.9 L (3.5-5.0) G/DL Intake and Output 07/09/17 07/10/17 07/10/17 22:59 06:59 14:59 Intake Total 1350.000 / 1350.000 478.333 / 774.815 1342.667 / 1201.667 Output Total 325 / 325 1000 / 1000 Balance 1025.000 / 1025.000 -521.667 / -914.651 4004.667 / 1201.667 Intake: IV 1100.000 / 1100.000 278.333 / 278.333 821.667 / 821.667 Cefazolin 1 g In Ns 100 100 / 100 100 / 100 ml @ 200 mls/hr IV Q8HR JOHN Rx#:[id number] Ns 1,000 ml @ 100 mls/hr 1000.000 / 1000.000 178.333 / 178.333 821.667 / 821.667 IV .Q10H JOHN Rx#: [id number] Oral 250 / 250 200 / 200 380 / 380 Output: Urine Amount (Catheter) 325 / 325 1000 / 1000 Other: Urine Appearance Hematuria Hematuria Urine Color Red Brown Urine Odor Normal EKG interpretations - Dysrhythmias Sinus rhythms and dysrhythmias: sinus rhythm (with narrow QRS complex variable degrees of AV block including second-degree Mobitz type I Wenckebach, second degree 2-1 AV block and some strips suggestive of a high grade intermittent complete heart block with A-V dissociation. No EKG with atrial fibrillation this admission, computer interpretation is incorrect) Assessment and Plan - Assessment and Plan (1) AVB (atrioventricular block) Problem details: With syncope Status: Acute Symptomatic with syncope Intermittent second and third degree AV block As discussed with you and recommend obtaining serial troponins Obtaining echocardiogram Meds reviewed Indication alternatives risks and benefits of permanent pacemaker insertion were discussed with the patient the presence of his and a friend will hold the Lovenox continue SCDs start antibiotics in the catheter lab and keep IV fluids, current rate thank you very much for consultation (2) Dyslipidemia Status: Acute (3) Intertrochanteric fracture of left femur Problem details: IM nail left hip with short Gamma Nail by Dr Weiner 07/09/17. Status: Acute (4) Hypertension Status: Acute (5) Coronary artery disease Status: Acute Hospital Course Summary Disclaimer: The visit summary below is not to be considered part of the above Progress Note. Hospital Course: 07/08/17 Inpatient admission Assessment Closed post traumatic intertrochanteric fracture of left hip Fall secondary to loss of footing Hematuria CAD HTN HDL Afib Plan Inpatient admission to [facility] [place] for definitive orthopedic treatment of hip fracture - anticipate greater than 2 midnights of care needed. Bedrest preop to minimize pain. Dilaudid for pain. Consult Dr Weiner for orthopedic evaluation and treatment options. SCD preop for DVT prevention, adding Lovenox post op. NPO after midnight in anticipation of surgery tomorrow. Full code as per his requests. Care to return to Dr Darby Villareal at time of discharge from [facility] [place]. 07/09/17 - OP DAY Patient tolerated surgery well. Metabolic Bone consult with Dr Galvez due to fracture. Check Vit D level. Will start oral Ca with vit D. Initial routine Senna Plus and Miralax to help decrease constipation. MOM and Dulcolax prn. IS for pulmonary toilet. PT/OT to help improve functional status. Full code as per his requests. Care to return to Dr Darby Villareal at time of discharge from [facility] [place]. 07/10/17 Assessment Syncope AVB with 2:1 conduction Closed post traumatic intertrochanteric fracture of left hip Fall secondary to loss of footing Hematuria mild ABLA CAD HTN HDL Afib Plan S/P syncopal event - strips/EKG reviewed; d/w Dr. Echavarria - will see today; poss PPM tomorrow. No BB on board. Serial trop + echo ordered. Request records from Dr. Villareal. Hgb - mild drop to 11.2. Chem stable.
--- NOTE | 2017-07-10 16:14 | Metabolic Bone Disease Consult ---
Orthopedic Consultation HPI - Consultation Info Consult Date: 07/10/17 Attending Physician: Jose Desir MD - History of Present Illness Mr. Liang is a kind 81-year-old gentleman was walking with his yesterday. She started to fall and he tried to catch her and then fell onto his left hip. He was brought in to the emergency room here [facility] and found to have a minimally displaced intertrochanteric hip fracture on the left. He is admitted to the hospitalist service and I was consult to for further care of his left hip fracture. He had a similar injury in his right hip in 2002 which was fixed with a cephalo-medullary nail. He states he's done well from that surgery. [facility] Patient Stated Medical History Dental Problems Yes Cardiac Arrhythmia Yes: history A Fib Coronary Artery Disease Yes: s/p CABG x 3 30 years ago Hypertension Yes Sleep Apnea No Hx Kidney Stones Yes Clinic Medical History Intertrochanteric fracture of left femur (Acute Medical) Atrial fibrillation (Acute Medical) Hypertension (Acute Medical) Coronary artery disease (Acute Medical) Dyslipidemia (Acute Medical) AVB (atrioventricular block) (Acute Medical) Medical History Updates: CAD. HTN. HL. Angina. atrial fibrillation Surgical History: Right hip repair. CABG 3 with a small [place] 1986 - Social History Smoking status: Never smoker Current residence: Apartment/Private Home Medications Home Medications Medication Instructions Recorded Confirmed Type Amlodipine Besylate [Norvasc] 2.5 mg PO BID #0 tab 11/22/13 07/08/17 History Aspirin [Aspir 81] 81 mg PO DAILY #0 tab 11/22/13 07/08/17 History Niacin (Inositol Niacinate) 1,000 mg PO BID 07/08/17 07/08/17 History [Niacin 500 mg Capsule] Nitroglycerin [Nitroglycerin] 0.4 mg PO Q5M PRN 07/08/17 07/08/17 History Pravastatin [Pravachol] 10 mg PO HS 07/08/17 07/08/17 History Allergies Allergy/AdvReac Type Severity Reaction Status Date / Time No Known Allergies Allergy Verified 07/08/17 20:53 Orthopedic Exam Vital signs: Temperature 97.6 F 07/09/17 07:08 Pulse Rate 70 07/09/17 07:50 Respiratory Rate 16 07/09/17 07:08 Blood Pressure 158/77 H 07/09/17 07:08 Pulse Oximetry 93 07/09/17 07:08 - Constitutional General Appearance: Present: alert, no acute distress, well developed, well nourished - Respiratory Exam Present: non-labored - Cardiovascular Exam Present: pedal pulses intact - Extremities Exam Present: no edema, normal capillary refill. Absent: cyanosis, clubbing, edema - Integumentary Exam Present: pink, warm, dry - Neurological Exam Present: no deficits - Psychiatric Exam Present: alert, normal affect Results - Labs Labs: Short CBC 07/10/17 Range/Units 04:09 WBC 7.2 (4.5-11.0) T/MM3 Hgb 11.2 L D (13.5-17.5) GM/DL Hct 34.5 L D (41-53) % Plt Count 185 (130-400) T/MM3 BMP 07/10/17 07/10/17 04:09 12:51 Sodium 138 138 Potassium 3.9 3.8 Chloride 108 H 108 H Carbon Dioxide 25 23 BUN 13.0 13.0 Creatinine 0.7 L 0.7 L Glucose 109 161 H Calcium 8.4 8.7 Cardiac Enzymes 07/10/17 07/10/17 Range/Units 04:09 12:51 Troponin I 0.037 0.019 (0-0.12) ng/ml Liver Function 07/10/17 Range/Units 04:09 Total Bilirubin 0.60 (0.20-1.30) MG/DL AST 35 (17-59) U/L ALT 38 (21-72) U/L Alkaline Phosphatase 39 (38-126) U/L Albumin 2.9 L (3.5-5.0) G/DL Impression and Recommendation (1) Osteopenia Current visit: Yes Status: Acute discussed fall prevention- will order bone density in follow up continue with calrate with D - Site of Current Fracture Lower Limb: Hip, Thigh-Femoral Shaft - Fracture History History of Fracture Age 50 or Older: Yes Fracture History (Indicate Age at Fracture): Proximal Febur - Risk Factors History of Rheumatoid Arthritis: No Secondary Osteoporosis Due To Condition/Medication: No - Treatment/Counseling Calcium 1200 mg/day (in divided doses): Yes Vitamin D at least 800-1000 IU/day: Yes Regular Weight Bearing and Muscle Strengthing Exercise: Yes Fall Prevention: Yes Smoking Cessation: Yes Alcohol Comsumption (no more than 2 drinks/day): Yes - Pharmacologic Treatment Recomend Pharmacologic Therapy: No Therapy Not Recommended Due To: Bone Health Assessment Ongoing Pharmacologic Therapy Initiated: No Reason Not Initiating Therapy: Treatment Planned For Future - Bone Mineral Density Testing Was BMD Testing Recommended: Yes BMD Testing: Planned/Scheduled - Written Communication Was Patient Provided With A Letter: Yes Letter Provided To Patient's PCP: No Discharge Status: Discharge Home Under Health Services Date of Initial Screen: 07/10/17 Age: 81.[birth year].5 M Gender: male Race: white Height/Weight: Height 1.79 m Weight 79.2 kg Body Mass Index 24.7 - Medications Home Medications: Home Medications Medication Instructions Recorded Confirmed Type Amlodipine Besylate [Norvasc] 2.5 mg PO BID #0 tab 11/22/13 07/08/17 History Aspirin [Aspir 81] 81 mg PO DAILY #0 tab 11/22/13 07/08/17 History Niacin (Inositol Niacinate) 1,000 mg PO BID 07/08/17 07/08/17 History [Niacin 500 mg Capsule] Nitroglycerin [Nitroglycerin] 0.4 mg PO Q5M PRN 07/08/17 07/08/17 History Pravastatin [Pravachol] 10 mg PO HS 07/08/17 07/08/17 History
[2017-07-10] MEDS: PRAVASTATIN 10 MG TABLET PO SCH (20:35)
[2017-07-10] MEDS: HYDROCODONE/APAP 5mg/325mg TABLET PO PRN (23:05)
[2017-07-10 23:11] VITALS: RESP 16
[2017-07-11] MEDS: NS 1,000 ML IV SCH ×3 (05:39→23:43)
--- NOTE | 2017-07-11 07:57 | Orthopedic Progress Note ---
Date: Subjective/Severity of Illness: Mr. Liang has no complaints in regard to his hip. He is getting a pacemaker today. Orthopedic Objective PO Vital signs: Temperature 98.3 F 07/11/17 03:45 Pulse Rate 94 07/11/17 03:45 Respiratory Rate 16 07/11/17 03:45 Blood Pressure 123/68 07/11/17 03:45 Pulse Oximetry 92 07/11/17 03:45 Height and Weight: Height 5 ft 10.5 in Weight 174 lb 9.698 oz Body Mass Index 24.7 - Constitutional General Appearance: Present: alert, no acute distress, well developed, well nourished - Respiratory Exam Present: non-labored - Cardiovascular Exam Present: pedal pulses intact - Abdominal Exam Absent: tenderness - Extremities Exam Extremities: Present: pulses intact. Absent: calf tenderness - Surgical Site Incision: dressing intact, no drainage - Integumentary Exam Present: pink, warm, dry - Neurological Exam Present: no deficits - Psychiatric Exam Present: alert, normal affect - Labs Result Diagrams: 07/11/17 04:10 07/11/17 04:10 Abnormal lab results 07/10/17 07/11/17 07/11/17 Range/Units 12:51 04:10 04:10 RBC 3.51 L (4.50-5.90) M/MM3 Hgb 10.1 L (13.5-17.5) GM/DL Hct 31.3 L (41-53) % MPV 9.2 L (9.4-12.4) UM3 Lymph % (Auto) 22.6 L (23-45) % [place] % (Auto) 9.3 H (0-9.0) % Chloride 108 H 109 H (98-107) MEQ/L Anion Gap 4 L (5-15) MEQ/L Creatinine 0.7 L 0.7 L (0.8-1.5) MG/DL Glucose 161 H (75-110) MG/DL Alkaline Phosphatase 36 L (38-126) U/L Total Protein 5.3 L (6.3-8.2) G/DL Albumin 2.7 L (3.5-5.0) G/DL Albumin/Globulin Ratio 1.0 L (1.1-2.2) RATIO H & H 07/09/17 07/10/1717 Range/Units 04:09 04:09 04:10 Hgb 13.5 11.2 L D 10.1 L (13.5-17.5) GM/DL Hct 40.9 L 34.5 L D 31.3 L (41-53) % Orthopedic Assessment and Plan (1) Osteopenia Status: Acute (2) Intertrochanteric fracture of left femur Status: Acute Qualifiers: Encounter type: initial encounter Fracture type: closed Fracture alignment: nondisplaced Qualified Code(s): S72.145A - Nondisplaced intertrochanteric fracture of left femur, initial encounter for closed fracture Assessment and Plan: IM nail left hip with short Gamma Nail by Dr Weiner 07/09/17. WBAT F/U with Phillip JACQUES 07/24/17 @ 2PM. Lovenox x 30d for VTE prevention. This will need to be restarted via Cardiology team following pacemaker implantation. SCDs and early mobilization for added coverage. Hospital Course Summary Disclaimer: The visit summary below is not to be considered part of the above Progress Note. Hospital Course: 07/08/17 Inpatient admission Assessment Closed post traumatic intertrochanteric fracture of left hip Fall secondary to loss of footing Hematuria CAD HTN HDL Afib Plan Inpatient admission to [facility] [place] for definitive orthopedic treatment of hip fracture - anticipate greater than 2 midnights of care needed. Bedrest preop to minimize pain. Dilaudid for pain. Consult Dr Weiner for orthopedic evaluation and treatment options. SCD preop for DVT prevention, adding Lovenox post op. NPO after midnight in anticipation of surgery tomorrow. Full code as per his requests. Care to return to Dr Darby Villareal at time of discharge from [facility] [place]. 07/09/17 - OP DAY Patient tolerated surgery well. Metabolic Bone consult with Dr Galvez due to fracture. Check Vit D level. Will start oral Ca with vit D. Initial routine Senna Plus and Miralax to help decrease constipation. MOM and Dulcolax prn. IS for pulmonary toilet. PT/OT to help improve functional status. Full code as per his requests. Care to return to Dr Darby Villareal at time of discharge from [facility] [place]. 07/10/17 Assessment Syncope AVB with 2:1 conduction Closed post traumatic intertrochanteric fracture of left hip Fall secondary to loss of footing Hematuria mild ABLA CAD HTN HDL Afib Plan S/P syncopal event - strips/EKG reviewed; d/w Dr. Echavarria - will see today; poss PPM tomorrow. No BB on board. Serial trop + echo ordered. Request records from Dr. Villareal. Hgb - mild drop to 11.2. Chem stable.
[2017-07-11] MEDS: POLYETHYL GLYCOL 3350 17gm PACKET PO SCH (08:40)
[2017-07-11] MEDS: ENOXAPARIN 40 MG/0.4 ML INJECTION SQ SCH (08:40)
[2017-07-11] MEDS: NIACIN ER 500 MG TABLET PO SCH ×2 (08:56→21:03)
[2017-07-11] MEDS: CALCIUM 600 + VIT D 400 TABLET PO SCH ×2 (08:56→21:03)
[2017-07-11] MEDS: ASPIRIN *EC* 81 MG TABLET PO SCH (08:56)
[2017-07-11] MEDS: SENNA + DOCUSATE TABLET PO SCH ×2 (08:56→21:03)
[2017-07-11] MEDS: AMLODIPINE 2.5 MG TABLET PO SCH ×2 (08:56→21:02)
[2017-07-11] MEDS ORDERED: CEFAZOLIN PREMIX (MC ONLY) 2 GM/50 ML BAG IV ONE (11:30)
[2017-07-11] MEDS ORDERED: CEFAZOLIN 1 G INJECTION ONE ×2 (12:37→13:03)
[2017-07-11] MEDS ORDERED: STERILE WATER FOR INJ 20ML 20 ML ONE (12:38)
[2017-07-11] MEDS ORDERED: FentaNYL 100 MCG/2 ML INJECTION ONE (12:38)
[2017-07-11] MEDS ORDERED: SALINE FLUSH 10ml SYRINGE ONE (12:38)
[2017-07-11] MEDS ORDERED: LIDOCAINE 1% (10mg/ml) 30ml SDV INJ ONE (12:38)
[2017-07-11] MEDS ORDERED: MIDAZOLAM 2mg/2ml INJECTION ONE ×2 (12:38→13:19)
[2017-07-11] MEDS ORDERED: BACITRACIN 50,000 UNIT INJECTION ONE (12:39)
--- NOTE | 2017-07-11 14:36 | XRay Report ---
Indication: post ppm PROCEDURE: XR chest 1V: Encounter: Initial Comparison: July 08, 2017 Findings: New left dual lead cardiac pacemaker with right atrial and right ventricular leads. Delayed absent not well visualized possibly due to cardiac motion. No evidence of a pneumothorax. Lungs are stable and grossly clear. No pleural effusion. Prior CABG. Cardiac silhouette is stable in size. Mediastinal contours and pulmonary vascularity are unchanged. Impression: New left pacemaker without evidence of pneumothorax. .
[2017-07-11] MEDS: CEFAZOLIN 1 G in NS 100 ML IV SCH (17:09)
--- NOTE | 2017-07-11 19:12 | Progress Note ---
- Date 07/11/17 Subjective: Mr. Liang was seen shortly after return from the [facility] where he underwent placement of a permanent placement. Patient reported minimal discomfort in his left shoulder and reported no chest pain, palpitations, dyspnea, or hip pain at this time. Patient was able to take only a few steps with physical therapy this morning due to development of dizziness and near syncope. Objective Vital signs: Temperature 97.5 F 07/11/17 14:20 Pulse Rate 100 07/11/17 18:23 Respiratory Rate 16 07/11/17 14:20 Blood Pressure 114/64 07/11/17 18:23 Pulse Oximetry 92 07/11/17 18:23 NAD, alert Conjunctiva clear, conjugate gaze Respirations nonlabored, good airflow, breath sounds clear anteriorly Regular rhythm, S1-S2, low-grade tachycardia Abdomen soft, nontender No edema bilateral lower extremities, sensation intact bilateral lower extremities Dorsiflexion/plantarflexion present bilateral lower extremities Cooperative, pleasant, euthymic - Rhythm: Normal Sinus Rhythm (with ventricular pacing) Height/Weight/BMI: Height 1.79 m Weight 83.1 kg Body Mass Index 24.7 Results - Labs CBC & Chem 7: 07/11/17 04:10 07/11/17 04:10 Labs: Total protein 5.3, albumin 2.7 Assessment and Plan (1) Intertrochanteric fracture of left femur Problem details: IM nail left hip with short Gamma Nail by Dr Weiner 07/09/17. Current visit: Yes Status: Acute (2) AVB (atrioventricular block) Problem details: With syncope Current visit: Yes Status: Acute (3) Coronary artery disease Current visit: Yes Status: Acute Assessment and Plan: Assessment Closed post traumatic intertrochanteric fracture of left hip Fall secondary to loss of footing Syncope (not POA) AVB with 2:1 conduction (Not POA), PPM per Dr. Echavarria 07/11/17 Hematuria Acute blood loss anemia-Hbg 14.3-10.1 CAD HTN HDL Paroxysmal Afib Moderate protein malnutrition Plan Status with Dr. Echavarria-pacemaker placed uneventfully. Telemetry currently with ventricular pacing evident, low-grade tachycardia on telemetry strip. Low-dose metoprolol initiated due to history coronary artery disease. Continue PT as tolerated-anticipate transfer to IRU tomorrow. Hemoglobin down slightly but not enough to trigger lightheadedness patient has experienced working with physical therapy. Monitor intermittently. Lovenox on hold to minimize risk of pacemaker pocket hematoma. Discussed with nursing, case management, Dr. Echavarria, and Dr. Abbasi. DVT Prophylaxis: SCD's Resuscitation Status: Full Code Hospital Course Summary Disclaimer: The visit summary below is not to be considered part of the above Progress Note. Hospital Course: 07/08/17 Inpatient admission Assessment Closed post traumatic intertrochanteric fracture of left hip Fall secondary to loss of footing Hematuria CAD HTN HDL Afib Plan Inpatient admission to [facility] [place] for definitive orthopedic treatment of hip fracture - anticipate greater than 2 midnights of care needed. Bedrest preop to minimize pain. Dilaudid for pain. Consult Dr Weiner for orthopedic evaluation and treatment options. SCD preop for DVT prevention, adding Lovenox post op. NPO after midnight in anticipation of surgery tomorrow. Full code as per his requests. Care to return to Dr Darby Villareal at time of discharge from [facility] [place]. 07/09/17 - OP DAY Patient tolerated surgery well. Metabolic Bone consult with Dr Galvez due to fracture. Check Vit D level. Will start oral Ca with vit D. Initial routine Senna Plus and Miralax to help decrease constipation. MOM and Dulcolax prn. IS for pulmonary toilet. PT/OT to help improve functional status. Full code as per his requests. Care to return to Dr Darby Villareal at time of discharge from [facility] [place]. 07/10/17 S/P syncopal event - strips/EKG reviewed; d/w Dr. Echavarria - will see today; poss PPM tomorrow. No BB on board. Serial trop + echo ordered. Request records from Dr. Villareal. Hgb - mild drop to 11.2. Chem stable. 07/10/[address] Echavarria-pacemaker placed uneventfully. Telemetry currently with ventricular pacing evident, low-grade tachycardia on telemetry strip. Low-dose metoprolol initiated due to history coronary artery disease. Continue PT as tolerated-anticipate transfer to IRU tomorrow. Hemoglobin down slightly but not enough to trigger lightheadedness patient has experienced working with physical therapy. Monitor intermittently. Lovenox on hold to minimize risk of pacemaker pocket hematoma.
[2017-07-11] MEDS: ACETAMINOPHEN 325 MG TABLET PO PRN (21:03)
[2017-07-11] MEDS: MINOCYCLINE 100 MG CAPSULE PO SCH (21:03)
[2017-07-11] MEDS: PRAVASTATIN 10 MG TABLET PO SCH (21:03)
[2017-07-12] MEDS: HYDROCODONE/APAP 5mg/325mg TABLET PO PRN ×2 (01:21→10:13)
[2017-07-12] MEDS: CEFAZOLIN 1 G in NS 100 ML IV SCH ×2 (01:21→08:24)
[2017-07-12] MEDS: ACETAMINOPHEN 325 MG TABLET PO PRN (06:15)
--- NOTE | 2017-07-12 07:58 | XRay Report ---
INDICATION: post ppm PROCEDURE: CHEST 2-VIEWS UPRIGHT (PA & LAT) Encounter: Initial COMPARISON: July 11, 2017 FINDINGS: Left cardiac pacemaker is again noted. No evidence of lead fracture or dislodgment. No pneumothorax. Lungs are stable and grossly clear. Sternotomy and CABG changes. Heart size and mediastinal contours are unchanged. Impression: Stable appearance of the left pacemaker. .
[2017-07-12] MEDS: POLYETHYL GLYCOL 3350 17gm PACKET PO SCH (08:22)
[2017-07-12] MEDS: ENOXAPARIN 40 MG/0.4 ML INJECTION SQ SCH (08:25)
[2017-07-12] MEDS: SENNA + DOCUSATE TABLET PO SCH (08:25)
[2017-07-12] MEDS: ASPIRIN *EC* 81 MG TABLET PO SCH (08:25)
[2017-07-12] MEDS: AMLODIPINE 2.5 MG TABLET PO SCH (08:26)
[2017-07-12] MEDS: MINOCYCLINE 100 MG CAPSULE PO SCH (08:27)
[2017-07-12] MEDS: NIACIN ER 500 MG TABLET PO SCH (08:27)
[2017-07-12] MEDS: CALCIUM 600 + VIT D 400 TABLET PO SCH (08:27)
--- NOTE | 2017-07-12 10:54 | Progress Note ---
<Rina Nichols V - Last Filed: 07/12/17 10:44> - Date 07/12/17 Subjective: Mr Liang is seen this morning in follow up. He reports that overall he is doing good. He worries about getting a pain pill before PT as he does have left hip pain with movement. Denies chest pain, shortness of breath or GI complaints. Bowels have not moved since surgery. Objective Vital signs: Temperature 98.5 F 07/12/17 08:00 Pulse Rate 95 07/12/17 08:00 Respiratory Rate 16 07/12/17 08:00 Blood Pressure 136/71 07/12/17 08:00 Pulse Oximetry 94 07/12/17 08:00 Height/Weight/BMI: Height 1.79 m Weight 85.7 kg Body Mass Index 24.7 - Constitutional Present: no acute distress, well nourished, well developed - Routine HEENT Exam Eye: Present: EOMI ENT: Present: mucous membranes moist, dentition normal - Routine Respiratory Exam Present: CTA bilaterally. Absent: wheezes - Routine Cardiovascular Exam Present: RRR. Absent: murmur - Routine Abdominal Exam Present: soft, normoactive bowel sounds, non distended. Absent: tenderness - Routine Extremities Exam Present: normal capillary refill - Routine Skin Exam Present: dry, warm - Routine Neurological Exam Present: alert, oriented X3, CN II-XII intact - Routine Lymphatic Exam Lymphatic: Absent: adenopathy - Routine Psychiatric Exam Present: normal affect Results - Labs CBC & Chem 7: 07/12/17 04:39 07/12/17 04:39 Assessment and Plan (1) Intertrochanteric fracture of left femur Problem details: IM nail left hip with short Gamma Nail by Dr Weiner 07/09/17. Current visit: Yes Status: Acute (2) Coronary artery disease Current visit: Yes Status: Acute (3) AVB (atrioventricular block) Problem details: With syncope Current visit: Yes Status: Acute Assessment and Plan: Assessment Closed post traumatic intertrochanteric fracture of left hip Fall secondary to loss of footing Syncope (not POA) AVB with 2:1 conduction (Not POA), PPM per Dr. Echavarria 07/11/17 Hematuria Acute blood loss anemia-Hbg 14.3-10.1 CAD HTN HDL Paroxysmal Afib Moderate protein malnutrition Plan Overall medically doing well PT/OT will re-evaluate today with hopes to be accepted to IRU. Lovenox on hold post pacer placement. Will discuss with Dr Echavarria when can resume and he does need 30 days post hip anticoagulation. Labs reviewed, Hgb today 9.8. Hopeful for transfer to IRU later today Hospital Course Summary Disclaimer: The visit summary below is not to be considered part of the above Progress Note. Hospital Course: 07/08/17 Inpatient admission Assessment Closed post traumatic intertrochanteric fracture of left hip Fall secondary to loss of footing Hematuria CAD HTN HDL Afib Plan Inpatient admission to [facility] [place] for definitive orthopedic treatment of hip fracture - anticipate greater than 2 midnights of care needed. Bedrest preop to minimize pain. Dilaudid for pain. Consult Dr Weiner for orthopedic evaluation and treatment options. SCD preop for DVT prevention, adding Lovenox post op. NPO after midnight in anticipation of surgery tomorrow. Full code as per his requests. Care to return to Dr aDrby Villareal at time of discharge from [facility]. 07/09/17 - OP DAY Patient tolerated surgery well. Metabolic Bone consult with Dr Galvez due to fracture. Check Vit D level. Will start oral Ca with vit D. Initial routine Senna Plus and Miralax to help decrease constipation. MOM and Dulcolax prn. IS for pulmonary toilet. PT/OT to help improve functional status. Full code as per his requests. Care to return to Dr Darby Villareal at time of discharge from [facility]. 07/10/17 S/P syncopal event - strips/EKG reviewed; d/w Dr. Echavarria - will see today; poss PPM tomorrow. No BB on board. Serial trop + echo ordered. Request records from Dr. Villareal. Hgb - mild drop to 11.2. Chem stable. 07/10/[address] Echavarria-pacemaker placed uneventfully. Telemetry currently with ventricular pacing evident, low-grade tachycardia on telemetry strip. Low-dose metoprolol initiated due to history coronary artery disease. Continue PT as tolerated-anticipate transfer to IRU tomorrow. Hemoglobin down slightly but not enough to trigger lightheadedness patient has experienced working with physical therapy. Monitor intermittently. Lovenox on hold to minimize risk of pacemaker pocket hematoma. 07/12/17 - Plan Overall medically doing well PT/OT will re-evaluate today with hopes to be accepted to IRU. Lovenox on hold post pacer placement. Will discuss with Dr Echavarria when can resume and he does need 30 days post hip anticoagulation. Labs reviewed, Hgb today 9.8. Hopeful for transfer to IRU later today <ThangGarcia D - Last Filed: 07/12/17 11:47> - Date 07/12/17 Objective Vital signs: Temperature 98.5 F 07/12/17 08:00 Pulse Rate 101 H 07/12/17 11:16 Respiratory Rate 16 07/12/17 08:00 Blood Pressure 136/71 07/12/17 08:00 Pulse Oximetry 94 07/12/17 08:00 Height/Weight/BMI: Height 1.79 m Weight 85.7 kg Body Mass Index 24.7 Results - Labs CBC & Chem 7: 07/12/17 04:39 07/12/17 04:39 Assessment and Plan (1) Intertrochanteric fracture of left femur Problem details: IM nail left hip with short Gamma Nail by Dr Weiner 07/09/17. Current visit: Yes Status: Acute (2) Coronary artery disease Current visit: Yes Status: Acute (3) AVB (atrioventricular block) Problem details: With syncope Current visit: Yes Status: Acute Assessment and Plan: Assessment Closed post traumatic intertrochanteric fracture of left hip Fall secondary to loss of footing Syncope (not POA) AVB with 2:1 conduction (Not POA), PPM per Dr. Echavarria 07/11/17 Hematuria Acute blood loss anemia-Hbg 14.3-10.1 CAD HTN HDL Paroxysmal Afib Moderate protein malnutrition Constipation Have independently interviewed and examined pt. Chart reviewed. Case discussed with CM and my MANAGER [employer]. Care plan developed with my supervision; agree with above. Doing well this morning. Notes only minimal discomfort at pacemaker site. Hip pain controlled. Tolerating therapy. Breathing well. No ab pain or nausea. Stools slow. Lungs: clear, no distress on RA. CV: regular AB: soft nt/nd BS decreased. MSE: awake alert appropriate Plan: Anticipate discharge to IRU later today. Encourage continuation of therapy to maximize functional status. Continue to work on bowel function. DVT Prophylaxis: SCD's Resuscitation Status: Full Code Hospital Course Summary Disclaimer: The visit summary below is not to be considered part of the above Progress Note.
[2017-07-12] MEDS: NS 1,000 ML IV SCH (11:02)
[2017-07-12 12:39] VITALS: BP 150/75; PULSE 95; TEMP 97.8; O2SAT 92
--- NOTE | 2017-07-12 13:50 | Discharge Summary ---
<Rina Nichols V - Last Filed: 07/12/17 13:46> Discharge Information Date of admission: 07/08/17 22:43 Anticipated date of discharge: 07/12/17 Attending Physician: Wanda Davila MD Consults: Wilbur Galvez - Metabolic Bone Disease Laure Echavarria- banking services officer, pacemaker placement - Discharge Diagnosis (1) Intertrochanteric fracture of left femur Status: Acute (2) Coronary artery disease Status: Acute (3) AVB (atrioventricular block) Status: Acute Closed post traumatic intertrochanteric fracture of left hip Fall secondary to loss of footing Syncope (not POA) AVB with 2:1 conduction (Not POA), PPM per Dr. Echavarria 07/11/17 Hematuria Acute blood loss anemia-Hbg 14.3-10.1 CAD HTN HDL Paroxysmal Afib Moderate protein malnutrition - Procedures Procedures: 07/09/17-Cephalomedullary fixation of left intertrochanteric hip fracture by Dr. Weiner 07/11/17-cardiac pacemaker placement by Dr. Echavarria - Laboratory Labs: 07/12/17 04:39 07/12/17 04:39 - Microbiology None - Radiology Radiology: 07/08/17-pelvis x-ray-close posttraumatic intertrochanteric left femoral fracture. 07/08/17-chest x-ray-no acute cardiopulmonary findings 07/08/17-CT scan of the left hip-intratrochanteric left femoral neck fracture 07/11/17-chest x-ray- Left pacemaker without evidence of pneumothorax 07/12/17-chest [id number] appearance of left pacemaker - Pathology None History of Present Illness HPI: This is a 81 y/o male who was walking in the yard with his who is limited with a walker. She lost her balance and as she was falling he caught her and fell landing on his left hip. The patient had immediate pain and is brought to the ED where an x ray demonstrates a minimally displaced left intertrochanteric fracture The patient has a history of cardiac disease and possibly atrial fibrillation. He currently only takes an aspirin for protection. He does not have chest pain and is very active with over 8 MeTS of activity noted. The patient has been assessed pre op through the ED an Dr. Weiner was contacted and will see the pateint in the am. Objective Vital signs: Temperature 97.8 F 11/08/17 12:00 Pulse Rate 95 07/12/17 12:00 Respiratory Rate 16 07/12/17 12:00 Blood Pressure 150/75 H 07/12/17 12:00 Pulse Oximetry 92 07/12/17 12:00 Rhythm: Normal Sinus Rhythm Height/Weight/BMI: Height 1.79 m Weight 85.7 kg Body Mass Index 24.7 - Constitutional Present: well nourished, well developed - Routine HEENT Exam Eye: Present: EOMI ENT: Present: mucous membranes moist, dentition normal - Routine Respiratory Exam Present: CTA bilaterally. Absent: wheezes - Routine Cardiovascular Exam Present: RRR, S1, S2. Absent: murmur - Routine Abdominal Exam Present: soft, normoactive bowel sounds, non distended. Absent: tenderness - Routine Extremities Exam Comments: Left arm, sling - Routine Skin Exam Present: intact, dry, warm - Routine Neurological Exam Present: alert, oriented X3, CN II-XII intact - Routine Lymphatic Exam Lymphatic: Absent: adenopathy - Routine Psychiatric Exam Present: normal affect Hospital Course This is a general summary of the patient's hospital course. For more details refer to the complete medical record. Hospital course: 07/08/17 Inpatient admission Assessment Closed post traumatic intertrochanteric fracture of left hip Fall secondary to loss of footing Hematuria CAD HTN HDL Afib Plan Inpatient admission to [facility] for definitive orthopedic treatment of hip fracture - anticipate greater than 2 midnights of care needed. Bedrest preop to minimize pain. Dilaudid for pain. Consult Dr Weiner for orthopedic evaluation and treatment options. SCD preop for DVT prevention, adding Lovenox post op. NPO after midnight in anticipation of surgery tomorrow. Full code as per his requests. Care to return to Dr Darby Villareal at time of discharge from [facility]. 07/09/17 - OP DAY Patient tolerated surgery well. Metabolic Bone consult with Dr Galvez due to fracture. Check Vit D level. Will start oral Ca with vit D. Initial routine Senna Plus and Miralax to help decrease constipation. MOM and Dulcolax prn. IS for pulmonary toilet. PT/OT to help improve functional status. Full code as per his requests. Care to return to Dr Darby Villareal at time of discharge from [facility]. 07/10/17 S/P syncopal event - strips/EKG reviewed; d/w Dr. Echavarria - will see today; poss PPM tomorrow. No BB on board. Serial trop + echo ordered. Request records from Dr. Villareal. Hgb - mild drop to 11.2. Chem stable. 07/10/[address] Echavarria-pacemaker placed uneventfully. Telemetry currently with ventricular pacing evident, low-grade tachycardia on telemetry strip. Low-dose metoprolol initiated due to history coronary artery disease. Continue PT as tolerated-anticipate transfer to IRU tomorrow. Hemoglobin down slightly but not enough to trigger lightheadedness patient has experienced working with physical therapy. Monitor intermittently. Lovenox on hold to minimize risk of pacemaker pocket hematoma. 07/12/17 - Plan- Discharge Overall medically doing well PT/OT will re-evaluate today with hopes to be accepted to IRU. Lovenox on hold post pacer placement. Will discuss with Dr Echavarria when can resume and he does need 30 days post hip anticoagulation. Labs reviewed, Hgb today 9.8. Hopeful for transfer to IRU later today 1300-patient has been accepted to inpatient rehabilitation today and will be transferred. Patient is seen and examined and stable medical condition. He will continue on minocycline 7 days for infection prophylaxis and pacemaker placement. Patient was started back on Lovenox today. He will require 30 days for postoperative anticoagulation. Monitor for evidence of bleeding or hematoma at site of pacemaker. Will monitor routine labs, hemoglobin stable at 9.8 today. Hospitalist services will continue to follow patient and medically manage his existing comorbidities during his stay on the IRU unit. His medical care will be turned over to PCP, Dr Gabbi Villareal time of discharge. Time spent with patient: greater than 35 minutes DVT Prophylaxis: Lovenox Discharge Plan - Discharge Disposition Discharge Date: 07/12/17 Disposition: 61 To [facility] INPT Rehab *Condition: Stable *Reason For Visit: Fractured left hip, Pacemaker placement - Discharge Medications *Discharge Medications: New Acetaminophen [Tylenol] 325 - 650 mg PO Q5H PRN tablet PRN Reason: Discomfort Bisacodyl Supp [Dulcolax] 10 mg RECTALLY DAILY PRN supp PRN Reason: Constipation Enoxaparin Sodium [Lovenox] 40 mg SQ DAILY syringe Senna + Docusate [Senna Plus Tablet] 1 tab PO BID tablet PEG 3350 17gm PACKET [Miralax] 17 gm PO DAILY packet Niacin ER [Niaspan] 1,000 mg PO BID tablet Milk of Magnesia [Mom] 30 ml PO DAILY PRN udc PRN Reason: Constipation Calcium 600 + D [Caltrate + D] 1 tab PO BID tablet Hydrocodone/APAP 5/325 [[place] 5/325] 1 tab PO Q6H PRN tablet PRN Reason: Pain Minocycline [Minocin] 100 mg PO BID capsule Metoprolol Succinate (XL) [Toprol Xl] 12.5 mg PO DAILY tablet Continue Aspirin [Aspir 81] 81 mg PO DAILY #0 tab Pravastatin [Pravachol] 10 mg PO HS Amlodipine Besylate [Norvasc] 2.5 mg PO BID #0 tab Nitroglycerin 0.4 mg PO Q5M PRN PRN Reason: Chest Pain Niacin (Inositol Niacinate) [Niacin 500 mg Capsule] 1,000 mg PO BID - Discharge Packet/Instructions *Diet: Cardiac *Activity: Do not raise arm on affected side above shoulder for 2 weeks. No swimming. No large arm swings such as golf *Pain Management/Treatment: Tylenol 650 mg every 6 hours. See prescription *Wound Care: Open to air. No shower for 5 days. Sponge bath is ok. Leave steri-strips on for 30 days. Keep pacemaker site dry and clean Additional Instructions: Lovenox SQ daily for 30 days post-op. Minocycline 7 days for prophylaxis following pacemaker placement *Expected Signs/Symptoms: Mild pain and bruising *Notify Physician if: Severe pain, redness, drainage, fever or chills, chest pain (not including incision pain), shortness or air or severe swelling. *During Business Hours Contact: Please call the physician's office at *After Business Hours Contact: Please call [phone] and have the nuclear plant equipment operator page the physician *Pending Lab/Results: No Pending Lab - IRU/GEN Discharge/Transfer - Referrals/Follow Up *Referrals/Follow Up: Jose Weiner MD [Physician] - - Patient Handouts Patient Handouts: [facility] Pacemaker, ORIF of Hip Fracture (DC) - Dismissal Complete Discharge Instructions are:: Complete <Jose Desir - Last Filed: 07/12/17 16:04> Discharge Information Date of admission: 07/08/17 22:43 Attending Physician: Wanda Davila MD Consults: 07/10/17 08:00 Physician Consult [CONS] Routine Consulting Provider: Wilbur Galvez Reason For Exam: Metabolic Bone Disease Ordering Provider has Notified Window Maker: No 07/10/17 08:34 Physician Consult [CONS] Routine Consulting Provider: Laure Echavarria Reason For Exam: av block & syncope Ordering Provider has Notified Window Maker: Yes 07/10/17 09:42 Physician Consult [CONS] Routine Consulting Provider: Fabiola Lopez Reason For Exam: CONT CARE Ordering Provider has Notified Window Maker: Yes 07/11/17 IRU Screening [Inpatient Rehab Screening] [CONS] Routine Screen requested by:: Case Management Comment Text:: lives at home with spouse - Discharge Diagnosis (1) Intertrochanteric fracture of left femur Status: Acute (2) Coronary artery disease Status: Acute (3) AVB (atrioventricular block) Status: Acute - Laboratory Labs: 07/12/17 04:39 07/12/17 04:39 Objective Vital signs: Temperature 97.8 F 07/12/17 12:00 Pulse Rate 95 07/12/17 12:00 Respiratory Rate 16 07/12/17 12:00 Blood Pressure 150/75 H 07/12/17 12:00 Pulse Oximetry 92 07/12/17 12:00 Height/Weight/BMI: Height 1.79 m Weight 85.7 kg Body Mass Index 24.7 Hospital Course This is a general summary of the patient's hospital course. For more details refer to the complete medical record. Attestation Narriative - Attestation Attestation Narrative: 07/12/17 16:02 I have independently interviewed and examined patient prior to discharge. See my progress note from today for detail. Medically stable for discharge to IRU.
--- NOTE | 2017-07-12 21:03 | Cardiology Progress Note ---
Subjective Interval history: Mr. Liang has no complaints . Denies incisional pain denies chest pain or dyspnea taken pain medicine for his hip pain .has been up and about has no complaints His pacemaker electronic check shows normal function normal pacing and sensing Chest x-ray shows no pacemaker related complications lead position appears good RV lead not adequately seen on the PA film His Lovenox restarted today at 40 mg as pacemaker appears good without hematoma All labs telemetry EKG meds were reviewed in detail appears stable Exam Vital signs: Temperature 97.8 F 07/12/17 12:00 Pulse Rate 95 07/12/17 12:00 Respiratory Rate 16 07/12/17 12:00 Blood Pressure 150/75 H 07/12/17 12:00 Pulse Oximetry 92 07/12/17 12:00 - Constitutional no acute distress - Routine HEENT Exam Head: Present: normocephalic, atraumatic Eye: Present: EOMI, PERRL ENT: Present: mucous membranes moist - Routine Neck Exam Absent: JVD, carotid bruit - Routine Chest/Breast/Axilla Exam Chest wall: Present: pacemaker (site looks excellent well approximated healing well no swelling no erythema or drainage or expected tenderness) - Routine Respiratory Exam Present: CTA bilaterally - Routine Cardiovascular Exam Present: RRR, S1 (normal), S2 (normal) - Routine Abdominal Exam Present: soft, normoactive bowel sounds, non tender - Routine Extremities Exam Absent: cyanosis, clubbing, edema - Routine Neurological Exam Present: alert, oriented X3, CN II-XII intact, moving all extremities, vision grossly intact, hearing grossly intact. Absent: motor deficit - Routine Psychiatric Exam Present: normal affect, normal thought process, cooperative, good judgment - Urinary Catheter Management Urethral Cath placed during this visit: yes, but has since been removed by the nurse Insertion date: 07/08/17 Insertion time: 23:30 Removal date: 07/09/17 Removal time: 00:55 Coude Cath placed during this visit: yes Insertion date: 07/09/17 Insertion time: 01:00 2-way Urethral Cath placed during this visit: yes Insertion date: 07/08/17 Results 07/12/17 04:39 07/12/17 04:39 CBC 07/12/17 Range/Units 04:39 WBC 6.3 (4.5-11.0) T/MM3 RBC 3.41 L (4.50-5.90) M/MM3 Hgb 9.8 L (13.5-17.5) GM/DL Hct 30.3 L (41-53) % Plt Count 180 (130-400) T/MM3 Neut # (Auto) 4.1 (1.8-7.7) T/MM3 Lymph # (Auto) 1.3 (1-4.8) T/MM3 [place] # (Auto) 0.6 (0-0.8) T/MM3 Eos # (Auto) 0.3 (0-0.5) T/MM3 Baso # (Auto) 0.0 (0-0.2) T/MM3 Comprehensive Metabolic Panel 07/12/17 Range/Units 04:39 Sodium 137 (134-144) MEQ/L Potassium 3.8 (3.6-5) MEQ/L Chloride 108 H (98-107) MEQ/L Carbon Dioxide 24 (22-30) MEQ/L BUN 16.0 (9-20) MG/DL Creatinine 0.6 L (0.8-1.5) MG/DL Glucose 98 (75-110) MG/DL Calcium 8.2 L (8.4-10.2) MG/DL Intake and Output 07/12/17 07/12/17 07/12/17 06:59 14:59 22:59 Intake Total 1220.000 / 9113.099 0207.334 / 1498.334 Output Total 450 / 450 900 / 900 Balance 770.000 / 299.288 9618.334 / 1498.334 -900 / -900 Intake: IV 870.000 / 490.713 5258.334 / 1318.334 Cefazolin 1 g In Ns 100 100 / 100 100 / 100 ml @ 200 mls/hr IV Q8HR JOHN Rx#:[id number] Ns 1,000 ml @ 100 mls/hr 770.000 / 165.619 5995.334 / 1218.334 IV .Q10H JOHN Rx#: [id number] Oral 350 / 350 180 / 180 Output: Urine Amount (Catheter) 450 / 450 900 / 900 Other: Urine Appearance Small Blood Clots Cloudy Sediment Urine Color Yellow Brown Dark Devi Urine Odor Strong Weight 85.7 kg Patient Weight 07/13/17 06:59 Weight 85.7 kg - EKG Interpretation EKG: sinus rhythm Assessment and Plan - Assessment and Plan (1) AVB (atrioventricular block) Problem details: With syncope Status: Acute Doing well status post pacemaker implant . At this point we'll start beta blockers for coronary artery disease Low-dose Lovenox appears to be well tolerated for DVT prophylaxis post hip replacement Check on the patient twice this morning around 10 AM and again tonight around 8: 30 PM (in IRU) and pacemaker site remains excellent and dry Continue minocycline for 5-7 days post pacemaker implant kindly No evidence of hematoma the pacemaker site Happy to see the patient follow-up in the office in about 2-4 weeks Kindly call me if any cardiac concerns arise Patient appears stable for discharge discuss with primary service earlier. (2) Dyslipidemia Status: Acute (3) Intertrochanteric fracture of left femur Problem details: IM nail left hip with short Gamma Nail by Dr Weiner 07/09/17. Status: Acute (4) Hypertension Status: Acute (5) Coronary artery disease Status: Acute Hospital Course Summary Disclaimer: The visit summary below is not to be considered part of the above Progress Note. Hospital Course: 07/08/17 Inpatient admission Assessment Closed post traumatic intertrochanteric fracture of left hip Fall secondary to loss of footing Hematuria CAD HTN HDL Afib Plan [place]patient admission [place] [facility] [place] definitive orthopedic treatment of hip fracture - anticipate greater than 2 midnights of care needed. Bedrest preop to minimize pain. Dilaudid for pain. Consult Dr Weiner for orthopedic evaluation and treatment options. SCD preop for DVT prevention, adding Lovenox post op. NPO after midnight in anticipation of surgery tomorrow. Full code as per his requests. Care to return to Dr Darby Villareal at time of discharge from [facility]. 07/09/17 - OP DAY Patient tolerated surgery well. Metabolic Bone consult with Dr Galvez due to fracture. Check Vit D level. Will start oral Ca with vit D. Initial routine Senna Plus and Miralax to help decrease constipation. MOM and Dulcolax prn. IS for pulmonary toilet. PT/OT to help improve functional status. Full code as per his requests. Care to return to Dr Darby Villareal at time of discharge from [facility]. 07/10/17 S/P syncopal event - strips/EKG reviewed; d/w Dr. Echavarria - will see today; poss PPM tomorrow. No BB on board. Serial trop + echo ordered. Request records from Dr. Villareal. Hgb - mild drop to 11.2. Chem stable. 07/10/[address] Echavarria-pacemaker placed uneventfully. Telemetry currently with ventricular pacing evident, low-grade tachycardia on telemetry strip. Low-dose metoprolol initiated due to history coronary artery disease. Continue PT as tolerated-anticipate transfer to IRU tomorrow. Hemoglobin down slightly but not enough to trigger lightheadedness patient has experienced working with physical therapy. Monitor intermittently. Lovenox on hold to minimize risk of pacemaker pocket hematoma. 07/12/17 - Plan- Discharge Overall medically doing well PT/OT will re-evaluate today with hopes to be accepted to IRU. Lovenox on hold post pacer placement. Will discuss with Dr Echavarria when can resume and he does need 30 days post hip anticoagulation. Labs reviewed, Hgb today 9.8. Hopeful for transfer to IRU later today 1300-patient has been accepted to inpatient rehabilitation today and will be transferred. Patient is seen and examined and stable medical condition. He will continue on minocycline 7 days for infection prophylaxis and pacemaker placement. Patient was started back on Lovenox today. He will require 30 days for postoperative anticoagulation. Monitor for evidence of bleeding or hematoma at site of pacemaker. Will monitor routine labs, hemoglobin stable at 9.8 today. Hospitalist services will continue to follow patient and medically manage his existing comorbidities during his stay on the IRU unit. His medical care will be turned over to PCP, Dr Gabbi Villareal time of discharge.
--- NOTE | 2017-07-14 09:29 | Echocardiogram ---
DATE OF SERVICE 07/10/2017 INDICATION Syncope. AV block, second and third degree. Coronary artery disease with remote CABG. TECHNICAL QUALITY Technically good 2-D, M-mode, Doppler echocardiographic images were submitted for interpretation. FINDINGS 1. CARDIAC CHAMBERS. All cardiac chamber measurements are normal. Aortic root diameter is normal. RV size and contractility appear normal. 2. LEFT VENTRICLE. Wall thickness is normal. Wall motion analysis is normal. Systolic function is normal. EF is estimated about 55%. Diastolic dysfunction , grade I/IV, is suggested with inverted E/A ratio 0.7. E/E' ratio remains normal at 5.3. 3. VALVES. Aortic valve exhibits moderated calcified sclerotic changes. Valve opening, nonetheless, remains good. Mitral valve exhibits mild annular calcification and sclerotic changes. Valve excursion is normal. Tricuspid valve structure and motion appear normal with normal valve excursion. 4. DOPPLER. Shows trace regurgitation involving all four valves, none of hemodynamic significance. Flow velocity at the aortic valve level 1.88 m/sec is borderline elevated with a mean pressure gradient of only 7 mmHg and calculated aortic valve area of 2.13 cm2, consistent with the absence of any significant aortic valve stenosis. 5. Normal central venous pressure. Normal systolic PA pressure of 27 mmHg. No evidence of intracardiac masses, thrombi, vegetations are shunts. IMPRESSION 1. Normal cardiac chamber size. 2. Normal LV systolic function, EF of 55-60%. 3. Sclerotic and calcified aortic valve changes without significant aortic stenosis. 4. No significant valvular dysfunction. 5. Low central venous pressure. 6. Normal systolic PA pressure of 27 mHg. MTDD
== END 2017-07-12 14:51 | DRG 481 ==
LOC: ED 20:07 → SUATTDRO 22:43 → SRG 22:43
PROVIDERS: ADMIT Emergency Medicine; ATTEND Internal Medicine

== ENCOUNTER 2017-07-12 14:51 | Inpatient (IN) ==
[2017-07-12 15:40] VITALS: BMI 26.8
[2017-07-12] MEDS ORDERED: MORPHINE SULFATE 4mg INJECTION IVP PRN (15:43)
[2017-07-12] MEDS ORDERED: ACETAMINOPHEN 325 MG TABLET PO PRN (15:43)
[2017-07-12] MEDS ORDERED: NITROGLYCERIN 0.4 MG SUBLINGUAL TABLET SL PRN (15:43)
[2017-07-12] MEDS ORDERED: BISACODYL 10 MG SUPPOSITORY RECTALLY PRN (15:43)
--- NOTE | 2017-07-12 16:01 | IRU History & Physical Report ---
HPI IRU Date: Chief complaint: my hip hurts HPI: Mr. Liang is a very pleasant 81-year-old man who was interviewed in his room on the inpatient rehabilitation unit. Referring physician is Dr. Jose eDsir. His primary care physician's Dr. Darby Villareal in [place]. His is present during interview. He was eating at a local restaurant on 2016 when his started to walk in front of him. There was concern that she might fall and he attempted to assist her in this regard. They both went down with the patient landing on his left hip. Patient was brought to [facility] where he was admitted after noting a left intratrochanteric hip fracture. The patient is a primary caregiver for his . He was taken to surgery by Dr. Weiner on 07/09/2017 for repair of the left intertrochanteric hip fracture. He tolerated the procedure well. He has had some acute blood loss anemia. Initial hemoglobin was 14.3. Subsequent hemoglobins were 11.2, 10.1 and 9.8 most recently. He was up with therapy on 07/10/2017. He had a woozy spell and in fact lost consciousness for some 20 seconds. He apparently had a pulse in the 30s according to the nurse. Dr. Echavarria was consulted. ECG initially showed what appeared to be Wenkebach Type II AV block. However there was question of complete heart block at times according to Dr Echavarria. The patient had another episode of lightheadedness lasting only a few seconds on 07/11/2017. A permanent pacemaker was placed on the afternoon of 07/11/2017. His left arm remains in an immobilizing sling at present. The patient denies any history of lightheadedness, presyncope or syncope prior to these current 2 episodes. He has had no chest pain during the current episode. He does have history of coronary artery disease with a remote history of coronary artery bypass graft procedure 3 in 1986. A small myocardial infarction was noted at that time. He is followed by Dr. Victor M Villareal in [place] in this regard. He reportedly had a stress test in December 2016 which was reportedly negative/normal. Current echocardiogram by verbal report indicates normal ejection fraction and no significant valvular abnormalities. Patient complains of significant pain in the left hip when he tries to bear weight. In addition he did have urinary retention which she attributes to lying in bed and not being able to stand up. Catheter placement was difficult and the catheter remains in place at the present time. He has had some elevated blood sugars in the 160-170 range. They have been down more recently. He does not have history of known diabetes mellitus. The patient does have history of hypertension. He was started on metoprolol during the acute stay. At home he is extremely active. He was mowing the yard as recently as 2 weeks ago. He walks between 1-1/2-2 miles at least 4 days weekly. He is the primary caregiver for his as noted above. The patient does have 2 steps at home to get into his home. He also has a basement. He does not use any assistive devices at home. Prior to the current fall, he was independent with all activities. Current level of functioning is as follows: Eating is is at modified independent level, grooming is total assistance. Upper body dressing is moderate assistance while lower body dressing is total assistance. He is independent with toileting but total assist for bed/chair/wheelchair transfers. He is able to walk with a rolling walker only 6 feet at the present time with total assistance. The following medical conditions are noted and require active monitoring and/or management: 1. Pain management in view of recent surgery. 2. Acute blood loss anemia with current hemoglobin 9.8 and original hemoglobin 14 3. Hypertension, benign essential: He has had recent addition of metoprolol possibly for coronary disease versus rhythm versus blood pressure. 4. Recent placement of permanent pacemaker following syncope and heart block. He is at risk for further arrhythmias and lightheadedness. The following therapies will be needed: 1. Physical therapy: for transfers and ambulation and stairs. 2. Occupational therapy: for ADL's and transfers. 3. Medical management: for the above conditions. 4. 24 hour Rehabilitation Nursing to monitor and address the following: Blood sugars, blood pressures, evidence of cardiac arrhythmia, syncope etc. [facility] Patient Stated Medical History Dental Problems Yes Cardiac Arrhythmia Yes: history A Fib Coronary Artery Disease Yes: s/p CABG x 3 30 years ago Hypertension Yes Sleep Apnea No Constipation No Hx Incontinence No Hx Kidney Stones Yes Rheumatoid Arthritis No Clinic Medical History Intertrochanteric fracture of left femur (Acute Medical) IM nail left hip with short Gamma Nail by Dr Weiner 07/09/17. Atrial fibrillation (Acute Medical) Hypertension (Acute Medical) Coronary artery disease (Acute Medical) Dyslipidemia (Acute Medical) AVB (atrioventricular block) (Acute Medical) With syncope Osteopenia (Acute Medical) Medical History Updates: CAD. HTN. HL. Angina. atrial fibrillation. Syncope secondary to heart block. Hyperglycemia without diagnosis of diabetes Surgical History: Right hip repair. CABG 3 with a small AL 1986. Kidney stones with transurethral extraction. Possible tonsillectomy-patient is uncertain. Current left hip fracture and repair. Current permanent pacemaker placement Family History: Patient's father is age 72 with bladder cancer mother is age 93 with cardiac etiology. Brother is age 79 with aneurysm. Another brother age 59 with apparent cardiac disease/heart attack. - Social History Smoking status: Never smoker Alcohol intake: current Alcohol intake frequency: holidays/special occasions only Last drink: days (ago) (60) Housing: house Household members: spouse service: Yes Current occupational status: retired Current residence: Apartment/Private Home Social history: The patient is the primary caregiver for his . They live in their own home. 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 He was in the [employer] in the [employer]. Review of Systems - Constitutional Constitutional: Absent: anorexia, chills, fatigue, fever(s), headache(s), lethargy, malaise, night sweats, weakness, weight gain, weight loss - EENMT Eyes: Absent: blurry vision, change in vision, diplopia Mouth/Throat: Absent: changes in swallowing, painful swallowing, change in taste , bleeding gums, change in voice EENMT Comments: Has several teeth missing as well as some damage to teeth. He has poor dentition. - Cardiovascular Cardiovascular: Absent: chest pain, palpitations, syncope, dyspnea on exertion, orthopnea, edema, cyanosis, heart murmur Rhythm: Present: regular rhythm Vascular: Absent: intermittent claudication, pedal edema, unilateral swelling - Respiratory Respiratory: Absent: cough, dyspnea, hemoptysis, dyspnea on exertion, wheezing, pain on inspiration, chest congestion, excessive phlegm production - Gastrointestinal Gastrointestinal: Present: constipation. Absent: abdominal pain, change in bowel habits, diarrhea, dyspepsia, dysphagia, early satiety, hematochezia, melena, nausea, vomiting - Genitourinary Genitourinary: Present: difficulty urinating, hematuria - Musculoskeletal Musculoskeletal: Present: myalgias. Absent: abnormal gait, arthralgias, back pain, joint swelling, limited range of motion, muscle weakness - Integumentary/Breasts Integumentary: Absent: alopecia, erythema, lesions, pruritus, rash, jaundice - Neurological Neurological: Absent: abnormal gait, abnormal movements, abnormal speech, confusion, convulsions, dizziness, focal weakness, frequent falls, headache(s), loss of vision, memory loss, numbness, paresthesias, tremor(s) - Psychiatric Psychiatric: Absent: abnormal sleep pattern, anxiety, depression - Endocrine Endocrine: Absent: cold intolerance, flushing, heat intolerance, palpitations - Hematologic/Lymphatic Hematologic/Lymphatic: Absent: easy bleeding, easy bruising, lymphadenopathy - Allergic/Immunologic Allergic/Immunologic: Present: seasonal rhinorrhea. Absent: urticaria Medications Home Medications Medication Instructions Recorded Confirmed Type Amlodipine Besylate [Norvasc] 2.5 mg PO BID #0 tab 11/22/13 07/08/17 History Aspirin [Aspir 81] 81 mg PO DAILY #0 tab 11/22/13 07/08/17 History Niacin (Inositol Niacinate) 1,000 mg PO BID 07/08/17 07/08/17 History [Niacin 500 mg Capsule] Nitroglycerin 0.4 mg PO Q5M PRN 07/08/17 07/08/17 History Pravastatin [Pravachol] 10 mg PO HS 07/08/17 07/08/17 History Allergies Allergy/AdvReac Type Severity Reaction Status Date / Time No Known Allergies Allergy Verified 07/12/17 15:36 Results IRU - Labs Labs: I reviewed the current acute inpatient data including notes, labs, EKG and echocardiogram. Exam Vital Signs: Temperature 98.0 F 07/12/17 15:08 Pulse Rate 99 07/12/17 15:08 Respiratory Rate 16 07/12/17 15:08 Blood Pressure 147/78 H 07/12/17 15:08 Pulse Oximetry 93 07/12/17 15:08 Height/Weight/BMI: Height 1.78 m Weight 84.8 kg Body Mass Index 26.8 - Constitutional Present: no acute distress, well nourished, well developed, average body habitus , cooperative - Routine HEENT Exam Head: Present: normocephalic, atraumatic. Absent: cushingoid faces, abrasion, laceration, hematoma Eye: Present: EOMI, PERRL. Absent: conjunctival icterus, scleral injection, periorbital swelling, nystagmus ENT: Present: mucous membranes moist, oropharynx clear. Absent: dentition normal (has several damaged teeth and missing teeth.) - Routine Neck Exam Present: supple, full ROM, trachea midline. Absent: lymphadenopathy, thyromegaly, tenderness, swelling - Routine Chest/Breast/Axilla Exam Chest wall: Absent: tenderness, mass Axillae: Absent: lymphadenopathy, mass - Routine Respiratory Exam Present: CTA bilaterally. Absent: accessory muscle use, decreased breath sounds , prolonged expiratory phase, rales, respiratory distress, rhonchi, stridor, wheezes, crackles, distant breath sounds - Routine Cardiovascular Exam Present: RRR, S1, S2, no murmur. Absent: gallop, S3, S4, click, irregular rhythm - Routine Abdominal Exam Present: soft, normoactive bowel sounds, non distended, non tender. Absent: rebound, guarding, firm, rigid, organomegaly, mass, hernia, wound - Routine Extremities Exam Present: no edema, non tender, pulses intact, normal capillary refill. Absent: cyanosis, clubbing - Routine Back/Spine/Pelvis Exam Back/Spine: Present: full ROM. Absent: scoliosis, kyphosis - Routine Skin Exam Present: intact, dry, warm. Absent: cyanosis, erythema, pallor, mottling, petechiae, urticaria, lesions, jaundice - Routine Neurological Exam Present: alert, oriented X3, CN II-XII intact, sensory deficit, motor deficit, moving all extremities, normal speech - Routine Psychiatric Exam Present: normal affect, normal thought process, cooperative, good insight, good judgment. Absent: depressed, anxious Sepsis Assessment - Evaluation Confirmed Suspected Infection: No SIRS Criteria: none IRU A/P (1) Intertrochanteric fracture of left femur Qualifiers: Encounter type: initial encounter Fracture type: closed Fracture alignment: nondisplaced Qualified Code(s): S72.145A - Nondisplaced intertrochanteric fracture of left femur, initial encounter for closed fracture Problem details: IM nail left hip with short Gamma Nail by Dr Weiner 07/09/17. Current visit: No Status: Acute Patient is status post repair of left intertrochanteric hip fracture. He does have significant pain with weightbearing. He is at risk for further uncontrolled pain and will require close monitoring in this regard. (2) Hypertension Qualifiers: Hypertension type: essential hypertension Qualified Code(s): I10 - Essential (primary) hypertension Current visit: No Status: Acute Has a history of benign essential hypertension. He was recent started on metoprolol. We will monitor his blood pressure carefully as well as his heart rhythm. (3) Presence of permanent cardiac pacemaker Current visit: Yes Status: Acute Permanent cardiac pacemaker was placed yesterday due to AV block. His rhythm will be monitored clinically as well as any evidence of presyncope etc. (4) Hyperglycemia Current visit: Yes Status: Acute While in the acute care hospital he did manifest some hyperglycemia. He does not have history of known diabetes. We will monitor his blood sugars from time to time. DVT Prophylaxis: SCD's, Lovenox Resuscitation Status: Full Code - Course Hospital Course: Oscar Abbasi MD: - Interventions to Obtain Goals PT Treatment Plan: Balance/Proprioception, Functional Activities, Gait Training , Patient/Family Education OT Treatment Plan: ADL (Basic Care), Balance Training, IADL, Pt./Family Education Goals Progress/Modifications: The patient was admitted to the inpatient rehabilitation unit for an intensive individualized program of occupational therapy, physical therapy and 24 rehabilitation nursing monitoring. Has a history of recent pacemaker placement for high-grade AV block. His blood pressures will be monitored in view of the new medication (metoprolol) that was started. Has a history of coronary artery disease. He does have significant pain with ambulation and is at risk of uncontrolled pain. The patient is the sole caregiver for his . With additional training and strengthening, risk of additional falls or readmission will be lessened.
--- NOTE | 2017-07-12 16:22 | IRU 24Hr Post Admit Eval ---
24 Hr Post Admission Physical - Relevant Changes Relevant Changes: No Reviewed: I have reviewed the patient's information and concur with the finding and results of the pre-admission screen. Certification: I certify the patient for rehabilitation. - Patient Condition (1) Intertrochanteric fracture of left femur Status: Acute Qualifiers: Encounter type: initial encounter Fracture type: closed Fracture alignment: nondisplaced Qualified Code(s): S72.145A - Nondisplaced intertrochanteric fracture of left femur, initial encounter for closed fracture Code(s): S72.142A - Displaced intertrochanteric fracture of left femur, initial encounter for closed fracture Classification: IRF Tx That Should Address Diagnosis, Diagnosis Requiring Medical Follow Up (2) Hypertension Status: Acute Qualifiers: Hypertension type: essential hypertension Qualified Code(s): I10 - Essential (primary) hypertension Code(s): I10 - Essential (primary) hypertension Classification: Present on IRF Admission, Diagnosis Requiring Medical Follow Up (3) Presence of permanent cardiac pacemaker Status: Acute Code(s): Z95.0 - Presence of cardiac pacemaker Classification: Present on IRF Admission, Diagnosis Requiring Medical Follow Up (4) Hyperglycemia Status: Acute Code(s): R73.9 - Hyperglycemia, unspecified Classification: Present on IRF Admission, IRF Tx That Should Address Diagnosis, Diagnosis Requiring Medical Follow Up - Prior Functional Status Lives With: Spouse Residence Type: Apartment/Private Home Assitive Devices: None Prior Functional Status: Indep. at home or school, Indep. w/ IADL - Current Functional Status Current Level of Function: Current level of functioning is as follows: Eating is is at modified independent level, grooming is total assistance. Upper body dressing is moderate assistance while lower body dressing is total assistance. He is independent with toileting but total assist for bed/chair/wheelchair transfers. He is able to walk with a rolling walker only 6 feet at the present time with total assistance. Failed Alternative Therapy: Arrived from Acute Care Patient Requirements: The patient requires oversight by rehabilitation physician to manage their rehabilitation treatment plan and multidisciplinary approach to care that can only be provided in an IRF and requires a multidisciplinary approach to care, provided by professional PTs, OTs, STs, dieticians, RTs, rehabilitation nurses and is not available in lesser levels of care. Limitations Req: Mobility Impairment, ADL Impairment, Limited Mobility Physical Therapy Minutes: 90 Occupational Therapy Minutes: 90 Therapy: The patient is to receive therapy at least 5 days a week. ROM Deficit: Left Lower Extremity - Complications/Comorbidities Impact on Functional Outcomes: Patient's significant pain in his left hip may negatively impact his functional outcome. Barriers to Discharge: Balance, Endurance, Pain Control - Plan to Avoid Complications Plan to Avoid Complications: The patient cannot receive this care in a lesser intensive setting such as [facility] or Outpatient Therapy due to the patient requiring the following : Close monitoring of blood pressure, evidence of further blood loss anemia, lightheadedness/presyncope, evidence of further dysrhythmias as well as monitoring of the wound for adequate healing. In addition he will require close management of his pain to avoid uncontrollable pain. .
[2017-07-12] MEDS: NIACIN ER 500 MG TABLET PO SCH (21:27)
[2017-07-12] MEDS: PRAVASTATIN 10 MG TABLET PO SCH (21:27)
[2017-07-12] MEDS: MINOCYCLINE 100 MG CAPSULE PO SCH (21:28)
[2017-07-12] MEDS: CALCIUM 600 + VIT D 400 TABLET PO SCH (21:28)
[2017-07-12] MEDS: SENNA + DOCUSATE TABLET PO SCH (21:28)
[2017-07-12] MEDS: AMLODIPINE 2.5 MG TABLET PO SCH (21:29)
[2017-07-12] MEDS: HYDROCODONE/APAP 5mg/325mg TABLET PO PRN (21:43)
[2017-07-13] MEDS: HYDROCODONE/APAP 5mg/325mg TABLET PO PRN ×2 (03:56→21:04)
[2017-07-13] MEDS: POLYETHYL GLYCOL 3350 17gm PACKET PO SCH (08:26)
[2017-07-13] MEDS: MINOCYCLINE 100 MG CAPSULE PO SCH ×2 (08:27→21:04)
[2017-07-13] MEDS: NIACIN ER 500 MG TABLET PO SCH ×2 (08:28→21:05)
[2017-07-13] MEDS: SENNA + DOCUSATE TABLET PO SCH ×2 (08:28→21:05)
[2017-07-13] MEDS: AMLODIPINE 2.5 MG TABLET PO SCH ×2 (08:28→21:04)
[2017-07-13] MEDS: CALCIUM 600 + VIT D 400 TABLET PO SCH ×2 (08:28→21:04)
[2017-07-13] MEDS: ASPIRIN *EC* 81 MG TABLET PO SCH (08:29)
--- NOTE | 2017-07-13 08:47 | Consult Note ---
<Rina Nichols V - Last Filed: 07/13/17 08:38> Consult Information - Data of Consult Consult date: 07/13/17 Requesting Physician: Oscar Abbasi MD Primary Care Provider: Dr Darby Villareal - Consult Narrative Reason for consult: Medical management History of present illness: Mr Liang is a pleasant 81-year-old gentleman who was admitted on 07/08 following a fall resulting in a into trochanteric left hip fracture. He underwent Cephalomedullary fixation of the left hip by Dr. Weiner on 07/09, and tolerated this well. On 07/10 while working with therapy. Patient became dizzy and had a syncopal episode. He was evaluated by Dr Echavarria and had a cardiac pacemaker placed on 07/11/17. Postoperatively, his Lovenox was held until 07/12, and then resumed. Patient was placed on minocycline for post procedure prophylaxis. Due to his physical limitations of recent left hip surgery, accompanied with pacemaker placement and left arm in sling, he was screened and accepted to the inpatient rehabilitation unit for ongoing therapy and postoperative strengthening. Mr Liang was seen and evaluated this morning for initial medical consultation. He is alert, oriented and pleasant. Eating breakfast without complaints of any pain, shortness of breath, palpitations, or other concerns. Morning labs are reviewed. Hemoglobin is stable at 10.4, otherwise unremarkable. Chemistry panel normal. Vital signs stable. [facility] Medical History Intertrochanteric fracture of left femur- IM nail left hip with short Gamma Nail by Dr Weiner 07/09/17. Atrial fibrillation Hypertension Coronary artery disease with CABG Dyslipidemia Osteopenia Presence of permanent cardiac pacemaker Hx of AVB (atrioventricular block) With syncope RA Hx Kidney stones Surgical History: Right hip repair. CABG 3 with PR 1986. Kidney stones with transurethral extraction. tonsillectomy ? Left hip repair- 07/09/17- dr Weiner. 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 Denies entire ROS Medications Home Medications Medication Instructions Recorded Confirmed Type Amlodipine Besylate [Norvasc] 2.5 mg PO BID #0 tab 11/22/13 07/08/17 History Aspirin [Aspir 81] 81 mg PO DAILY #0 tab 11/22/13 07/08/17 History Niacin (Inositol Niacinate) 1,000 mg PO BID 07/08/17 07/08/17 History [Niacin 500 mg Capsule] Nitroglycerin 0.4 mg PO Q5M PRN 07/08/17 07/08/17 History Pravastatin [Pravachol] 10 mg PO HS 07/08/17 07/08/17 History Allergies Allergy/AdvReac Type Severity Reaction Status Date / Time No Known Allergies Allergy Verified 07/12/17 15:36 Exam Vital Signs: Temperature 98.3 F 07/13/17 07:00 Pulse Rate 87 07/13/17 07:00 Respiratory Rate 16 07/13/17 07:00 Blood Pressure 125/74 07/13/17 07:00 Pulse Oximetry 94 07/13/17 07:00 Height/Weight/BMI: Height 1.78 m Weight 84.8 kg Body Mass Index 26.8 - Constitutional Present: no acute distress, well nourished, well developed - Routine HEENT Exam Eye: Present: EOMI, PERRL ENT: Present: mucous membranes moist, dentition normal - Routine Respiratory Exam Present: CTA bilaterally. Absent: wheezes - Routine Cardiovascular Exam Present: RRR, S1, S2. Absent: murmur - Routine Abdominal Exam Present: soft, normoactive bowel sounds, non distended. Absent: tenderness - Routine Extremities Exam Present: pulses intact - Routine Skin Exam Present: intact, dry, warm Comments: No evidence of swelling or hematoma at pacer sight - Routine Neurological Exam Present: alert, oriented X3, CN II-XII intact - Routine Psychiatric Exam Present: normal affect, cooperative Results - Labs CBC & Chem 7: 07/13/17 04:41 07/13/17 04:41 Assessment and Plan (1) S/p left hip fracture Current visit: Yes Status: Acute (2) S/P cardiac pacemaker procedure Current visit: Yes Status: Acute Assessment and Plan: Impression S/P- Cephalomedullary fixation of left intertrochanteric hip fracture S/P-cardiac pacemaker placement Acute blood loss anemia-stable Coronary artery disease Hypertension Hyperlipidemia Paroxysmal atrial fibrillation Plan Agree with admission to inpatient rehabilitation unit under the care of Dr. Abbasi for strengthening and postoperative function. Patient is to continue post pacemaker placement precautions with sling to left arm. He is prophylactically on minocycline for 7 days. Resume Lovenox subcutaneous daily for postoperative DVT prophylaxis. End date . Monitor for evidence of post-pacemaker hematoma. Continue to monitor routine labs, hemoglobin this morning is stable at 9.8. Preoperatively, patient's hemoglobin was 14.3. [place] as needed for Post-op pain Norvasc for blood pressure control Miralax and MOM for bowel motivation Encourage work with PT and OT for ongoing postoperative strengthening and improve function. Does reside independently and is the caregiver of his . The hospitalist services will continue to follow patient during his day in the [facility]. His existing comorbidities. At time of discharge medical care will return to his primary care provider, Dr Gabbi Villareal Hospital Course Summary Disclaimer: The visit summary below is not to be considered part of the above Progress Note. Hospital Course: 07/13/17 Impression S/P- Cephalomedullary fixation of left intertrochanteric hip fracture S/P-cardiac pacemaker placement Acute blood loss anemia-stable Coronary artery disease Hypertension Hyperlipidemia Paroxysmal atrial fibrillation Plan Agree with admission to inpatient rehabilitation unit under the care of Dr. Abbasi for strengthening and postoperative function. Patient is to continue post pacemaker placement precautions with sling to left arm. He is prophylactically on minocycline for 7 days. Resume Lovenox subcutaneous daily for postoperative DVT prophylaxis. End date . Monitor for evidence of post-pacemaker hematoma. Continue to monitor routine labs, hemoglobin this morning is stable at 9.8. Preoperatively, patient's hemoglobin was 14.3. [place] as needed for Post-op pain Norvasc for blood pressure control Miralax and MOM for bowel motivation Encourage work with PT and OT for ongoing postoperative strengthening and improve function. Does reside independently and is the caregiver of his . The hospitalist services will continue to follow patient during his day in the [facility]. His existing comorbidities. At time of discharge medical care will return to his primary care provider, Wanda Lowe Filed: 07/13/17 18:20> Results - Labs CBC & Chem 7: 07/13/17 04:41 07/13/17 04:41 Assessment and Plan (1) S/p left hip fracture Problem details: Left intertrochanteric fracture 07/08/17 Current visit: Yes Status: Acute (2) S/P cardiac pacemaker procedure Problem details: Pacemaker placed 07/11/17 for AV block Current visit: Yes Status: Acute Assessment and Plan: I have independently evaluated and examined this patient. 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 We discussed and formulated the assessment and plan as above with additions as below: Mr. Liang is known from acute hospitalization for left IT fracture; he underwent gamma nail stabilization by Dr. Weiner on 07/09 followed by syncopal events the following 2 days with second degree 2:1 AV block demonstrated on telemetry and some strips demonstrated high grade intermittent complete heart block with AV dissociation prompting placement of permanent pacemaker on 07/11. Patient transfers to rehabilitation for further management and due to limited functional capacity. He currently denies chest pain or palpitations. He denied dyspnea when seen and reports no current lightheadedness (was standing with therapists at the bedside when I arrived) although he became lightheaded and briefly passed out earlier today after standing/walking briefly following bowel movement. He continues to have significant pain in his hip with standing/ ambulating. Patient is alert, cooperative, and speech is fluent. Respirations are nonlabored, airflow good, breath sounds clear Cardiac rhythm is regular with normal S1 and S2; telemetry at present with sinus rhythm and no indication of pacer spikes by my review. Abdomen benign, extremities without edema. Hemoglobin 10.4 from admission value of 14.3, chemistries unremarkable. EKG reviewed by myself demonstrates sinus rhythm, possible old postero-inferior PR, no acute changes. Plans as outlined above for rehabilitation and adjunct medical care. Today syncopal event discussed with Dr. Abbasi. DVT Prophylaxis: Lovenox Resuscitation Status: Full Code Hospital Course Summary Disclaimer: The visit summary below is not to be considered part of the above Progress Note.
[2017-07-13] MEDS: ENOXAPARIN 40 MG/0.4 ML INJECTION SQ SCH (09:08)
--- NOTE | 2017-07-13 10:59 | IRU Progress Note ---
- Subjective/Serverity of Illness When I initially evaluated Mr. Liang this morning he was doing well. He was sitting up in a chair. Reports that his pain is adequately controlled. Denies any chest pain or shortness of breath. However while he was working with therapy he had another syncopal spell this morning. This was at approximately 10:50 AM. I went to check on him immediately. He is awake and alert. The story is that he was sitting on the toilet and had a relatively large bowel movement. He then walked 3-4 steps over to the shower chair with assistance. He was sitting at that point. Prior to starting the shower he became quiet and apparently lost responsiveness for about 5 seconds. His eyes "rolled back" in his head. There was no seizure-like activity and no tonic-clonic movements. Had no incontinence. Initial blood pressure was around 80 systolic. He rapidly regained consciousness. He states he does recall feeling lightheaded and passing out this morning. He denies any chest pain, palpitations or shortness of breath. These episodes are similar to what happened earlier this week according to therapy. His oxygen saturation is 97% on room air. Blood pressure is now back up to 116 systolic. He feels well. His exam is negative. I will contact the hospitalist service to advise Rina of this. Appears to be consistent with a vagal response. However we will reinstitute telemetry. Exam Vital Signs: Temperature 98.3 F 07/13/17 07:00 Pulse Rate 87 07/13/17 07:00 Respiratory Rate 16 07/13/17 07:00 Blood Pressure 125/74 07/13/17 07:00 Pulse Oximetry 94 07/13/17 07:00 Height/Weight/BMI: Height 1.78 m Weight 84.8 kg Body Mass Index 26.8 Comments: The patient is awake, alert and oriented and in no acute distress. He was evaluated with earlier this morning as well as immediately after his syncopal spell. Pupils are equal. Neurologically he seems to be intact. The neck is supple. Chest: Clear to auscultation bilaterally. Cor: RR with no gallop, click nor murmur Abd: soft with normo-active bowel sounds. There are no masses, no tenderness and no guarding. Extremities: No edema is noted. . IRU A/P (1) Intertrochanteric fracture of left femur Qualifiers: Encounter type: initial encounter Fracture type: closed Fracture alignment: nondisplaced Qualified Code(s): S72.145A - Nondisplaced intertrochanteric fracture of left femur, initial encounter for closed fracture Problem details: IM nail left hip with short Gamma Nail by Dr Weiner 07/09/17. Current visit: No Status: Acute Does have discomfort as anticipated due to the fracture of the left femur. Just getting started with therapy and is cooperative. (2) Hypertension Qualifiers: Hypertension type: essential hypertension Qualified Code(s): I10 - Essential (primary) hypertension Current visit: No Status: Acute Overall his blood pressures have been running fine. He was hypotensive after his syncopal spell this morning. (3) Presence of permanent cardiac pacemaker Current visit: Yes Status: Acute We will place him back on telemetry and check an EKG this morning. (4) Hyperglycemia Current visit: Yes Status: Resolved Blood sugar is 99 on BMP. (5) Vaso vagal episode Current visit: Yes Status: Acute Patient had another episode of syncope this morning as noted above. Appears to be consistent with a vagal response after bowel movement. We will reinstitute telemetry and do an EKG this morning. I have also contacted Rina with the hospitalist service to keep her informed. He seems to be stable at present. DVT Prophylaxis: SCD's, Lovenox Resuscitation Status: Full Code - Course Hospital Course: Oscar Abbasi MD: 07/13/17 11:00 Patient has the anticipated amount of pain in the left femur. Had a syncopal spell this morning. Appears to be vasovagal. Initial blood pressure 80 but now back up into the 116 range. Saturations normal. - Interventions to Obtain Goals PT Treatment Plan: Balance/Proprioception, Functional Activities, Gait Training , Patient/Family Education, Therapeutic Exercise OT Treatment Plan: ADL (Basic Care), Balance Training, IADL, Pt./Family Education Goals Progress/Modifications: Time spent with patient and on floor reviewing data and documentin min Barriers to dismissal: syncope, pain, endurance Medical decision-making: I reevaluated the patient after his syncopal spell. This is fairly brief and is most consistent with a vagal reaction. However in view of his previously known heart block we will reinstitute telemetry. Cannot rule out arrhythmia as an etiology although it was fairly brief. He denies any chest pain. There is no shortness of breath and his saturations are normal implying that this was not an embolus. There was no neurologic change and no seizure activity identified. However in view of his recent episodes of syncope ( this is now the third episode) we will do an EKG and restart telemetry and monitor him carefully. We will continue therapy at present.
--- NOTE | 2017-07-13 11:52 | IRU Plan of Care ---
U Overall Plan of Care - Date Date: 07/13/17 - Patient Impairments (1) Intertrochanteric fracture of left femur Qualifiers: Encounter type: initial encounter Fracture type: closed Fracture alignment: nondisplaced Qualified Code(s): S72.145A - Nondisplaced intertrochanteric fracture of left femur, initial encounter for closed fracture Code(s): S72.142A - Displaced intertrochanteric fracture of left femur, initial encounter for closed fracture Status: Acute Classification: IRF Tx That Should Address Diagnosis, Diagnosis Requiring Medical Follow Up (2) Hypertension Qualifiers: Hypertension type: essential hypertension Qualified Code(s): I10 - Essential (primary) hypertension Code(s): I10 - Essential (primary) hypertension Status: Acute Classification: Present on IRF Admission, Diagnosis Requiring Medical Follow Up (3) Presence of permanent cardiac pacemaker Code(s): Z95.0 - Presence of cardiac pacemaker Status: Acute Classification: Present on IRF Admission, Diagnosis Requiring Medical Follow Up (4) Hyperglycemia Code(s): R73.9 - Hyperglycemia, unspecified Status: Resolved Classification: Present on IRF Admission, IRF Tx That Should Address Diagnosis, Diagnosis Requiring Medical Follow Up (5) Vaso vagal episode Code(s): R55 - Syncope and collapse Status: Acute Classification: IRF Tx That Should Address Diagnosis, Diagnosis Requiring Medical Follow Up - Relevant Changes Relevant Changes: No Reviewed: I have reviewed the patient's information and concur with the finding and results of the pre-admission screen. Certification: I certify the patient for rehabilitation. - Medical Prognosis Medical Prognosis: Good Vital Signs: Last Vital Signs Temp 98.3 F 07/13/17 07:00 Pulse 87 07/13/17 07:00 Resp 16 07/13/17 07:00 BP 125/74 07/13/17 07:00 Pulse Ox 94 07/13/17 07:00 - Anticipated Interventions Anticipated Interventions: The patient requires inpatient IRF care for PT and OT for residuals remaining from left hip fracture resulting in muscular weakness and strength deficits. An individualized overall plan of care has been developed after careful review of the patient's preadmission screening, post admission physician evaluation and assessments of all therapy disciplines and/or other pertinent clinicians involved in treating the patient. This indicates medical necessity and rehabilitation necessity have been established through a thorough review of all available medical information. ROM Deficit: Left Lower Extremity Strength Deficits: Left Lower Extremity - Current Functional Status Failed Alternative Therapy: Arrived from Acute Care Patient Requires: The patient requires oversight by rehabilitation physician to manage their rehabilitation treatment plan and multidisciplinary approach to care that can only be provided in an IRF and requires a multidisciplinary approach to care, provided by professional PTs, OTs, STs, rehabilitation nurses, and may require STs, dieticians, and RTS. This is not available in lesser levels of care. Physical Therapy Minutes: 90 Occupational Therapy Minutes: 90 Therapy: The patient is to receive therapy at least 5 days a week. - Anticipated LOS/Outcomes Anticipated Functional Outcome: Expected functional improvements include: -- Modified independant to independant ambulation with or without assistive device -- Modified independant to independant ADL's with or without assistive device -- Return to pre-morbid level of mobility -- Maximize level of mobility and ADL's to decrease burden on any caregiver involved with this patient's care Anticipated Length of Stay (days): 10 Anticipated DC Destination: Home, Self Skilled Nursing Safety Plan: The patient will be provided with the development of a Home Safety Plan for return to a home or home-like environment and and to ensure safety post discharge. - Plan to Avoid Complications Barriers to Attaining Goals: Weakness, Balance, Endurance, Pain Control, Medical Limitation Plan to Avoid Complications: The patient cannot receive this care in a lesser intensive setting such as Jail or Outpatient Therapy due to the patient requiring the following : Close monitoring for episodes of presyncope or syncope, cardiac arrhythmia, pain management and monitoring of the wound to ensure no evidence of wound infection. .
[2017-07-13] MEDS ORDERED: INFLUENZA VAC High Dose 2017-18 (Fluzone HD*) (>=65yo) 0.5ml IM ONE (15:37)
[2017-07-13] MEDS: PRAVASTATIN 10 MG TABLET PO SCH (21:04)
[2017-07-14] MEDS: HYDROCODONE/APAP 5mg/325mg TABLET PO PRN ×2 (06:37→12:37)
[2017-07-14] MEDS: AMLODIPINE 2.5 MG TABLET PO SCH (08:32)
[2017-07-14] MEDS: CALCIUM 600 + VIT D 400 TABLET PO SCH ×2 (08:33→20:45)
[2017-07-14] MEDS: ASPIRIN *EC* 81 MG TABLET PO SCH (08:33)
[2017-07-14] MEDS: MINOCYCLINE 100 MG CAPSULE PO SCH ×2 (08:34→20:45)
[2017-07-14] MEDS: NIACIN ER 500 MG TABLET PO SCH ×2 (08:34→20:45)
[2017-07-14] MEDS: POLYETHYL GLYCOL 3350 17gm PACKET PO SCH (08:35)
[2017-07-14] MEDS: SENNA + DOCUSATE TABLET PO SCH ×2 (08:35→20:48)
[2017-07-14] MEDS: ENOXAPARIN 40 MG/0.4 ML INJECTION SQ SCH (10:52)
--- NOTE | 2017-07-14 14:41 | Progress Note ---
- Date 07/14/17 Subjective: Mr monroe is seen this afternoon while working with PT. He is working on getting in and out of the vehicle and is tolerating this well. He is doing a good job at minimizing weightbearing on the left arm as he is status post pacemaker placement. He has had no further episodes of dizziness, lightheadedness or syncope. Bowels moved yesterday, [place] remains intact. Objective Vital signs: Temperature 98.3 F 07/14/17 07:00 Pulse Rate 92 07/14/17 07:00 Respiratory Rate 16 07/14/17 07:00 Blood Pressure 121/72 07/14/17 07:00 Pulse Oximetry 94 07/14/17 07:00 Height/Weight/BMI: Height 1.78 m Weight 84.8 kg Body Mass Index 26.8 Comments: Intermittently paced with occasional PACs and PVCs - Constitutional Present: no acute distress, well nourished, well developed - Routine HEENT Exam Eye: Present: EOMI ENT: Present: mucous membranes moist, dentition normal - Routine Respiratory Exam Present: CTA bilaterally. Absent: wheezes - Routine Cardiovascular Exam Present: RRR, S1, S2. Absent: murmur Comments: Pacemaker sight without erythema or drainage - Routine Abdominal Exam Present: soft, normoactive bowel sounds, non distended. Absent: tenderness - Routine Extremities Exam Present: normal capillary refill - Routine Skin Exam Present: dry, warm - Routine Neurological Exam Present: alert, oriented X3, CN II-XII intact - Routine Lymphatic Exam Lymphatic: Absent: adenopathy - Routine Psychiatric Exam Present: normal affect Results - Labs CBC & Chem 7: 07/14/17 04:45 07/14/17 04:45 Assessment and Plan (1) S/p left hip fracture Problem details: Left intertrochanteric fracture 07/08/17 Current visit: Yes Status: Acute (2) S/P cardiac pacemaker procedure Problem details: Pacemaker placed 07/11/17 for AV block Current visit: Yes Status: Acute Assessment and Plan: Impression S/P- Cephalomedullary fixation of left intertrochanteric hip fracture S/P-cardiac pacemaker placement Acute blood loss anemia-stable Coronary artery disease Hypertension Hyperlipidemia Paroxysmal atrial fibrillation Plan Dr Echavarria consulted to continue to follow patient given that he did have a syncopal episode. Will ask his recommendations for BP control. Currently on Norvasc. Orthostatic Vitals signs were ordered yesterday however have not been done. Discussed with nursing staff. Continue Lovenox subcutaneous daily for postoperative DVT prophylaxis. End date 08/09/17. Encourage work with PT and OT for ongoing postoperative strengthening and improve function. Hospital Course Summary Disclaimer: The visit summary below is not to be considered part of the above Progress Note. Hospital Course: 07/13/17 Impression S/P- Cephalomedullary fixation of left intertrochanteric hip fracture S/P-cardiac pacemaker placement Acute blood loss anemia-stable Coronary artery disease Hypertension Hyperlipidemia Paroxysmal atrial fibrillation Plan Agree with admission to inpatient rehabilitation unit under the care of Dr. Abbasi for strengthening and postoperative function. Patient is to continue post pacemaker placement precautions with sling to left arm. He is prophylactically on minocycline for 7 days. Resume Lovenox subcutaneous daily for postoperative DVT prophylaxis. End date . Monitor for evidence of post-pacemaker hematoma. Continue to monitor routine labs, hemoglobin this morning is stable at 9.8. Preoperatively, patient's hemoglobin was 14.3. [place] as needed for Post-op pain Norvasc for blood pressure control Miralax and MOM for bowel motivation Encourage work with PT and OT for ongoing postoperative strengthening and improve function. Does reside independently and is the caregiver of his . The hospitalist services will continue to follow patient during his day in the [facility]. His existing comorbidities. At time of discharge medical care will return to his primary care provider, Dr Gabbi Villareal 07/14/[address] Echavarria consulted to continue to follow patient given that he did have a syncopal episode. Will ask his recommendations for BP control. Currently on Norvasc. Orthostatic Vitals signs were ordered yesterday however have not been done. Discussed with nursing staff. Continue Lovenox subcutaneous daily for postoperative DVT prophylaxis. End date 08/09/17. Encourage work with PT and OT for ongoing postoperative strengthening and improve function.
[2017-07-14] MEDS ORDERED: INFLUENZA VAC. INJ. ADMIN CHARGE INJ ONE (19:37)
[2017-07-14] MEDS: PRAVASTATIN 10 MG TABLET PO SCH (20:46)
[2017-07-14] MEDS: SALINE FLUSH 10ml SYRINGE IV PRN (20:50)
[2017-07-15] MEDS: ASPIRIN *EC* 81 MG TABLET PO SCH (08:57)
[2017-07-15] MEDS: HYDROCODONE/APAP 5mg/325mg TABLET PO PRN ×2 (08:57→17:19)
[2017-07-15] MEDS: NIACIN ER 500 MG TABLET PO SCH ×2 (08:58→22:06)
[2017-07-15] MEDS: MINOCYCLINE 100 MG CAPSULE PO SCH ×2 (08:58→22:06)
[2017-07-15] MEDS: CALCIUM 600 + VIT D 400 TABLET PO SCH ×2 (08:58→22:06)
[2017-07-15] MEDS: POLYETHYL GLYCOL 3350 17gm PACKET PO SCH (08:59)
[2017-07-15] MEDS: SENNA + DOCUSATE TABLET PO SCH ×2 (08:59→22:06)
[2017-07-15] MEDS ORDERED: AMLODIPINE 2.5 MG TABLET PO SCH (09:00)
[2017-07-15] MEDS: ENOXAPARIN 40 MG/0.4 ML INJECTION SQ SCH (11:24)
[2017-07-15] MEDS: PRAVASTATIN 10 MG TABLET PO SCH (22:06)
[2017-07-15] MEDS: SALINE FLUSH 10ml SYRINGE IV PRN (22:07)
--- NOTE | 2017-07-15 22:20 | Cardiology Consult Note ---
History of Present Illness Consult reason: known to you (near syncopal/syncopal event) History of present illness: Mr. Liang is a very pleasant 81-year-old male well-known to me who underwent recent a dual-chamber permanent pacemaker implant for documented intermittent second-degree and third-degree AV block associated with syncope/ presyncope Surgery was unremarkable. He has no angina or dyspnea. His echocardiogram showed normal LV function and no significant valvular abnormality. See echo report. He has a remote coronary artery disease and CABG with normal LV function on recent echo and reportedly normal stress nuclear scan earlier this year. Patient was transferred to IRU and recovery from his recent hip surgery and the pacemaker implant limiting the mobility of both his left leg and left arm. About 48 hours ago patient had a near syncopal episode upon standing up following a bowel movement. I discussed the case with both the and practitioner and the spanish tutor on the case. EKG shows sinus rhythm without acute changes. Telemetry shows a sinus rhythm appropriate ventricular paced rhythm. Pacemaker interrogation was ordered and showed normal sensing and pacing function. Adjustment for vasodilator therapy was recommended and Lasix Lasix to continue to be held as discussed with Dr. Davila. I'm asked to see the patient consultation. Patient had no further syncopal or near syncopal episodes his blood pressures running in the 100s systolic. His been participating in physical therapy well for his nurse without limitations. Again patient denies angina palpitations denies dyspnea or dizziness. His med list was reviewed in detail multiple vasodilator meds on board. His allergies also reviewed ,none is listed. Review of Systems All systems PM: 10-point ROS was reviewed, no additional remarkable complaints except - Cardiovascular Cardiovascular: Present: syncope, as per HPI (no pain or swelling at his pacemaker site) Rhythm: Present: regular rhythm - Musculoskeletal Musculoskeletal: Present: other (left hip and leg pain) [facility] Patient Stated Medical History Dental Problems Yes Cardiac Arrhythmia Yes: history A Fib Coronary Artery Disease Yes: s/p CABG x 3 30 years ago Hypertension Yes Sleep Apnea No Constipation No Hx Incontinence No Hx Kidney Stones Yes Rheumatoid Arthritis No Clinic Medical History Intertrochanteric fracture of left femur (Acute Medical) IM nail left hip with short Gamma Nail by Dr Weiner 07/09/17. Atrial fibrillation (Acute Medical) Hypertension (Acute Medical) Coronary artery disease (Acute Medical) Dyslipidemia (Acute Medical) AVB (atrioventricular block) (Acute Medical) With syncope Osteopenia (Acute Medical) Presence of permanent cardiac pacemaker (Acute Medical) Hyperglycemia (Resolved Medical) S/p left hip fracture (Acute Medical) Left intertrochanteric fracture 07/08/17 Vaso vagal episode (Acute Medical) Medical History Updates: CAD. HTN. HL. Syncope secondary to heart block. Hyperglycemia without diagnosis of diabetes Surgical History: Right hip repair. CABG 3 with [place] 1986. Kidney stones with transurethral extraction. tonsillectomy ? Left hip repair- 07/09/17- dr Weiner. Pacemaker placement- 07/11/17- Dr Echavarria - Social History Smoking status: Never smoker Current residence: Apartment/Private Home (resides independently at home and is a caregiver to his ) Medications Home Medications Medication Instructions Recorded Confirmed Type Amlodipine Besylate [Norvasc] 2.5 mg PO BID #0 tab 11/22/13 07/08/17 History Aspirin [Aspir 81] 81 mg PO DAILY #0 tab 11/22/13 07/08/17 History Niacin (Inositol Niacinate) 1,000 mg PO BID 07/08/17 07/08/17 History [Niacin 500 mg Capsule] Nitroglycerin 0.4 mg PO Q5M PRN 07/08/17 07/08/17 History Pravastatin [Pravachol] 10 mg PO HS 07/08/17 07/08/17 History Allergies Allergy/AdvReac Type Severity Reaction Status Date / Time No Known Allergies Allergy Verified 07/12/17 15:36 Exam Vital signs: Temperature 98.2 F 07/15/17 16:00 Pulse Rate 94 07/15/17 16:00 Respiratory Rate 14 07/15/17 16:00 Blood Pressure 135/71 07/15/17 16:00 Pulse Oximetry 96 07/15/17 16:00 - Constitutional no acute distress - Routine HEENT Exam Head: Present: normocephalic, atraumatic Eye: Present: EOMI, PERRL ENT: Present: mucous membranes moist - Routine Neck Exam Present: normal carotid upstroke. Absent: JVD, carotid bruit, lymphadenopathy, thyromegaly - Routine Respiratory Exam Present: CTA bilaterally - Routine Cardiovascular Exam Present: RRR, murmur (soft 1/6 SHAHLA) - Routine Abdominal Exam Present: soft, normoactive bowel sounds, non distended, non tender. Absent: organomegaly, mass - Routine Extremities Exam Present: no edema, pulses intact, normal capillary refill. Absent: cyanosis, clubbing - Routine Skin Exam Present: intact, dry, wounds (pacemaker incision looks dry with approximated and no swelling no erythema no tenderness or discharge). Absent: cyanosis, erythema - Routine Neurological Exam Present: alert, oriented X3, CN II-XII intact, moving all extremities, vision grossly intact, normal speech. Absent: motor deficit, hemineglect, facial asymmetry - Routine Psychiatric Exam Present: normal affect, normal thought process, good insight, good judgment Results 07/14/17 04:45 07/14/17 04:45 Intake and Output 07/15/17 07/15/17 07/15/17 06:59 14:59 22:59 Intake Total 420 / 420 240 / 240 Output Total 1650 / 1650 425 / 425 Balance -1230 / -1230 -185 / -185 Intake: Oral 420 / 420 240 / 240 Output: Urine Amount (Catheter) 1650 / 1650 425 / 425 Other: Urine Appearance Clear Urine Color Yellow - EKG Interpretation EKG: sinus rhythm, no acute changes, not changed from: (previous EKG) EKG interpretations - Dysrhythmias Sinus rhythms and dysrhythmias: sinus rhythm (today's at telemetry shows sinus rhythm with a narrow QRS complex. Previous strips showed ventricular paced rhythm.) - [place], pacemaker, normal Pacemaker: ventricular pacing w/capture (except when refractory) Assessment and Plan - Assessment and Plan Syncope/near syncope appears related to orthostasis/vasovagal following bowel movement Dual-chamber permanent pacemaker in place recent implant Coronary artery disease status post [place] and CABG times 11/20/1986 normal LV function Status post recent hip surgery for non-syncopal fall and the fracture Dyslipidemia on high-dose niacin and pravastatin Hypertension Due to syncope a pacemaker interrogation ordered and showed normal function Due to orthostasis/vasovagal I recommend Lasix remains on hold/discontinued, amlodipine be reduced/stopped I'm going to also discontinue niacin due to orthostasis and relative hypotension caused by its vasodilatory effects I'm going to discontinue pravastatin, and to place the 2 drugs, I'm going to start atorvastatin 40 mg daily due to patient's CABG. May gradually increase beta bety dose may protect him due to coronary artery disease and vasovagal reaction, now that a functional pacemaker is in place and no concern about bradycardia. continue blood pressure follow-up and telemetry under IRU rehabilitation team/ internal medicine I'm out on Monday , I am available by telephone and there is emergency cardiology coverage in [place] I'll be back on Monday to see the patient in follow-up Please call for any concerns Discussed with hospitalist Thank you for your consultation Hospital Course Summary Disclaimer: The visit summary below is not to be considered part of the above Progress Note. Hospital Course: 07/13/17 Impression S/P- Cephalomedullary fixation of left intertrochanteric hip fracture S/P-cardiac pacemaker placement Acute blood loss anemia-stable Coronary artery disease Hypertension Hyperlipidemia Paroxysmal atrial fibrillation Plan Agree with admission to inpatient rehabilitation unit under the care of Dr. Abbasi for strengthening and postoperative function. Patient is to continue post pacemaker placement precautions with sling to left arm. He is prophylactically on minocycline for 7 days. Resume Lovenox subcutaneous daily for postoperative DVT prophylaxis. End date . Monitor for evidence of post-pacemaker hematoma. Continue to monitor routine labs, hemoglobin this morning is stable at 9.8. Preoperatively, patient's hemoglobin was 14.3. [place] as needed for Post-op pain Norvasc for blood pressure control Miralax and MOM for bowel motivation Encourage work with PT and OT for ongoing postoperative strengthening and improve function. Does reside independently and is the caregiver of his . The hospitalist services will continue to follow patient during his day in the [facility]. His existing comorbidities. At time of discharge medical care will return to his primary care provider, Dr Gabbi Villareal 07/14/[address] Echavarria consulted to continue to follow patient given that he did have a syncopal episode. Will ask his recommendations for BP control. Currently on Norvasc. Orthostatic Vitals signs were ordered yesterday however have not been done. Discussed with nursing staff. Continue Lovenox subcutaneous daily for postoperative DVT prophylaxis. End date 08/09/17. Encourage work with PT and OT for ongoing postoperative strengthening and improve function.
[2017-07-16] MEDS: HYDROCODONE/APAP 5mg/325mg TABLET PO PRN ×2 (08:26→20:39)
[2017-07-16] MEDS: CALCIUM 600 + VIT D 400 TABLET PO SCH ×2 (08:27→20:40)
[2017-07-16] MEDS: MINOCYCLINE 100 MG CAPSULE PO SCH ×2 (08:27→20:40)
[2017-07-16] MEDS: POLYETHYL GLYCOL 3350 17gm PACKET PO SCH (08:28)
[2017-07-16] MEDS: ASPIRIN *EC* 81 MG TABLET PO SCH (08:28)
[2017-07-16] MEDS: ENOXAPARIN 40 MG/0.4 ML INJECTION SQ SCH (08:28)
[2017-07-16] MEDS: SENNA + DOCUSATE TABLET PO SCH ×2 (08:29→20:41)
[2017-07-16] MEDS: ATORVASTATIN 40 MG TABLET PO SCH (20:40)
[2017-07-17] MEDS: HYDROCODONE/APAP 5mg/325mg TABLET PO PRN ×2 (06:45→22:11)
[2017-07-17] MEDS: MINOCYCLINE 100 MG CAPSULE PO SCH ×2 (09:13→22:12)
[2017-07-17] MEDS: CALCIUM 600 + VIT D 400 TABLET PO SCH ×2 (09:14→22:12)
[2017-07-17] MEDS: ASPIRIN *EC* 81 MG TABLET PO SCH (09:14)
[2017-07-17] MEDS: SENNA + DOCUSATE TABLET PO SCH ×2 (09:15→22:12)
[2017-07-17] MEDS: POLYETHYL GLYCOL 3350 17gm PACKET PO SCH (09:15)
[2017-07-17] MEDS: ENOXAPARIN 40 MG/0.4 ML INJECTION SQ SCH (09:27)
--- NOTE | 2017-07-17 11:52 | IRU Progress Note ---
- Subjective/Serverity of Illness Mr. Liang states that things are going much better over the last several days. He did have a syncopal spell late last week. This was after the pacemaker was placed. Dr. Echavarria was consulted and the hospitalists also saw the patient. It was felt that this was likely vasovagal in origin. Interrogation of the pacemaker failed to reveal evidence of failure to sense or pace. He has done better since that time. He has had no further lightheadedness and his blood pressures seem to be good. He denies any lightheadedness nor presyncopal feelings. He was on Lasix previously and that is being held. His pain appears to be adequately controlled at the present time. Hemoglobin remained stable at around 10 g percent and he has had no further evidence of blood loss. He can use to deny any chest pain. Bowels are sluggish. He is working with therapy and is improving. We did discuss his home situation. is debilitated and requires 24-hour care. They're having increasing difficulty finding someone to stay with her. He would like to be out of here as soon as reasonably possible. Exam Vital Signs: Temperature 98.0 F 07/17/17 08:40 Pulse Rate 90 07/17/17 08:42 Respiratory Rate 12 07/17/17 08:40 Blood Pressure 124/68 07/17/17 08:42 Pulse Oximetry 97 07/17/17 08:42 Height/Weight/BMI: Height 1.78 m Weight 84.8 kg Body Mass Index 26.8 Comments: The patient is awake, alert and oriented and in no acute distress. Pupils are equal. The neck is supple. Chest: Clear to auscultation bilaterally. Cor: RR with no gallop, click nor murmur Abd: soft with normo-active bowel sounds. There are no masses, no tenderness and no guarding. Extremities: Trace of edema on operated side. Results IRU - Labs Labs: Reviewed consultations and hospitalists notes as well as labs. IRU A/P (1) Intertrochanteric fracture of left femur Qualifiers: Encounter type: initial encounter Fracture type: closed Fracture alignment: nondisplaced Qualified Code(s): S72.145A - Nondisplaced intertrochanteric fracture of left femur, initial encounter for closed fracture Problem details: IM nail left hip with short Gamma Nail by Dr Weiner 07/09/17. Current visit: No Status: Acute He is status post repair of a fracture of his left femur. He is improving with regard to therapies. This was reviewed today. Transfers are going better and ambulatory distance is improved to 97 feet. (2) Hypertension Qualifiers: Hypertension type: essential hypertension Qualified Code(s): I10 - Essential (primary) hypertension Current visit: No Status: Acute His blood pressures well controlled. He has had no further identified episodes of hypotension. (3) Presence of permanent cardiac pacemaker Current visit: Yes Status: Acute Pacemaker function appears to be normal. He is been seen by Dr. Echavarria. Syncope not related to pacemaker dysfunction. (4) Hyperglycemia Current visit: Yes Status: Resolved We will discontinue his blood sugar monitoring. (5) Vaso vagal episode Current visit: Yes Status: Resolved Has had no further episodes of syncope. DVT Prophylaxis: Lovenox Resuscitation Status: Full Code - Course Hospital Course: Oscar Abbasi MD: 07/13/17 11:00 Patient has the anticipated amount of pain in the left femur. Had a syncopal spell this morning. Appears to be vasovagal. Initial blood pressure 80 but now back up into the 116 range. Saturations normal. 07/17/17 11:53 He has improved with regard to transfers and ambulation. ADLs are improved. No further syncopal spells and no further lightheadedness/hypotension. Pacemaker function appears to be normal. Telemetry remains in place. Blood sugars are normal. - Interventions to Obtain Goals PT Treatment Plan: Balance/Proprioception, Functional Activities, Gait Training , Patient/Family Education, Therapeutic Exercise OT Treatment Plan: ADL (Basic Care), Balance Training, IADL, Pt./Family Education Goals Progress/Modifications: Time spent with patient and on floor reviewing data and documentin min Barriers to dismissal: Endurance, balance Medical decision-making: Patient has multiple medical issues that we are monitoring. He has had no episode of syncope both on acute care twice and on rehabilitation once. This does not appear to be related to his pacemaker at the present time and pacemaker function is normal. Here on rehabilitation I think it was likely due to vasovagal etiology. His blood pressures remained stable since that time. In addition we are monitoring his blood sugars which were elevated previously but are now okay. Finally, his hemoglobin remained stable. He is improving with therapy and we will continue working with him.
--- NOTE | 2017-07-17 13:28 | IRU Team Meeting ---
IRU Team Meeting - Nursing Bladder Assistive Devices Utilized:: Catheter Bladder Management Level of Assist: Total Assistance Bladder Frequency of Accidents: No accidents Bowel Assistive Devices Utilized:: Medication Bowel Management Level of Assist: Modified Independent Bowel Frequency of Accidents: No accidents Vital Signs: Vital Signs - 24 hr 07/16/17 16:00 07/16/17 20:00 07/17/17 00:00 Temperature 98.2 F 98.1 F Pulse Rate 77 96 85 Respiratory Rate 16 16 Blood Pressure 121/65 135/68 Pulse Oximetry 99 95 07/17/17 08:00 07/17/17 08:40 07/17/17 08:41 Temperature 98.0 F Pulse Rate 78 75 87 Respiratory Rate 12 Blood Pressure 121/65 123/66 Pulse Oximetry 97 95 07/17/17 08:42 Temperature Pulse Rate 90 Respiratory Rate Blood Pressure 124/68 Pulse Oximetry 97 Current Medications: Acetaminophen (Tylenol) 325 - 650 mg PO Q5H PRN PRN Reason: Discomfort Hydrocodone Bitart/Acetaminophen ([place] 5/325) 1 tab PO Q6H PRN PRN Reason: Pain Last Admin: 07/17/17 06:45 Dose: 1 tab Aspirin (Ecotrin) 81 mg PO DAILY [facility] Last Admin: 07/17/17 09:14 Dose: 81 mg Atorvastatin Calcium (Lipitor) 40 mg PO HS [facility] Last Admin: 07/16/17 20:40 Dose: 40 mg Bisacodyl (Dulcolax) 10 mg RECTALLY DAILY PRN PRN Reason: Constipation Calcium/Vitamin D (Caltrate + D) 1 tab PO BID [facility] Last Admin: 07/17/17 09:14 Dose: 1 tab Enoxaparin Sodium (Lovenox) 40 mg SQ DAILY [facility] Stop: 08/09/17 09:00 Last Admin: 07/17/17 09:27 Dose: 40 mg Magnesium Hydroxide (Mom) 30 ml PO DAILY PRN PRN Reason: Constipation Metoprolol Succinate (Toprol Xl) 12.5 mg PO DAILY [facility] Last Admin: 07/17/17 09:14 Dose: 12.5 mg Minocycline HCl (Minocin) 100 mg PO BID [facility] Stop: 07/19/17 09:00 Last Admin: 07/17/17 09:13 Dose: 100 mg Nitroglycerin (Nitrostat) 0.4 mg SL Q5M PRN PRN Reason: Chest pain Polyethylene Glycol (Miralax) 17 gm PO DAILY [facility] Last Admin: 07/17/17 09:15 Dose: Not Given Senna/Docusate Sodium (Senna Plus Tablet) 1 tab PO BID [facility] Last Admin: 07/17/17 09:15 Dose: 1 tab Sodium Chloride (Iv Flush) 10 ml IV PRN PRN PRN Reason: Flushing Last Admin: 07/15/17 22:07 Dose: 10 ml Current Medical Issues: Hypertension with history of vasovagal syncope, recent pacemaker placement, urinary retention, acute blood loss edema Comments: I certify that I personally led the interdisciplinary team meeting and agree with comments, barriers and goals indicated. Team meeting was held in the patient's room with the patient and the following family members present: Patient alone Mr. Liang is very cooperative. His blood pressures have been stable. He had a syncopal episode last week felt to be secondary to vagal stimulation. He has had no further episodes of hypotension. Telemetry has been unremarkable. Pacemaker appears to be working normally. Pacemaker was interrogated shortly after the syncopal spell and there was no evidence of problem. He continues to have the Edouard catheter and is undergoing bladder retraining. Does have some poor dentition. Hemoglobin is stable at 10.6. Denies any lightheadedness. His amlodipine and niacin and diuretic have been discontinued. - Physical Therapy Bed, Chair, Wheelchair Transfer Assist: Minimal Assistance Ambulation Ability: Stand By Assist/Supervision, Household Exception Ambulation Distance: 206 Wheelchair Propulsion Ability: Maximal Assistance Wheelchair Propulsion Distance: 134 Stair Climbing Ability: Maximal Assistance Number of Steps Climbed: 4 Car Transfer Ability: Stand By Assist/Supervision Comments: He is making great progress toward goals. His ambulatory distance has improved. He is able to attempt stairs. His level of requirement for assistance with sit to stand transfers has improved. - Occupational Therapy Eating Ability: Independent Grooming Ability: Stand By Assist/Supervision Bathing Ability: Minimal Assistance, 1 Person Assist Upper Body Dressing Ability: Modified Independent Lower Body Dressing Ability: Contact Guard Assistance Tub Transfer Assist: Minimal Assistance Toileting Assist: Contact Guard Assistance Toilet Transfer Assist: Minimal Assistance, 1 Person Assist Comments: He is progressing nicely toward occupational therapy goals. He is requiring minimal assistance for sit to stand from low surfaces. At home he will require a raised toilet seat, operater and a sock aid. - Goals Physical Therapy Goals: 07/17/17 Goals: 1.) Mod I with amb and transfers Occupational Therapy Goals: 07/17/17 goals: 1.) LB dressing w/ mod I. 2.) Toileting w/ mod I - Barriers to Discharge Barriers to Attaining Goals: Endurance, Pain Control - Care Plan Anticipated Length of Stay (days): 4 Anticipated DC Destination: Home, Self Care I have led this team conference and agree with the plan.
[2017-07-17] MEDS: ATORVASTATIN 40 MG TABLET PO SCH (22:11)
[2017-07-18] MEDS: HYDROCODONE/APAP 5mg/325mg TABLET PO PRN ×3 (06:23→22:11)
[2017-07-18] MEDS: MINOCYCLINE 100 MG CAPSULE PO SCH (08:21)
[2017-07-18] MEDS: CALCIUM 600 + VIT D 400 TABLET PO SCH ×2 (08:21→22:12)
[2017-07-18] MEDS: ASPIRIN *EC* 81 MG TABLET PO SCH (08:21)
[2017-07-18] MEDS: SENNA + DOCUSATE TABLET PO SCH ×3 (08:21→22:12)
[2017-07-18] MEDS: POLYETHYL GLYCOL 3350 17gm PACKET PO SCH (08:23)
--- NOTE | 2017-07-18 11:47 | IRU Progress Note ---
- Subjective/Serverity of Illness Mr. Liang is very pleased with his progress as we are. He denies any further symptoms of lightheadedness, presyncope or syncope. Bowels are moving. He denies any chest pain, palpitations or headaches. His appetite remains good. Exam Vital Signs: Temperature 98.0 F 07/18/17 07:00 Pulse Rate 77 07/18/17 07:00 Respiratory Rate 14 07/18/17 07:00 Blood Pressure 115/65 07/18/17 07:00 Pulse Oximetry 94 07/18/17 07:00 Height/Weight/BMI: Height 1.78 m Weight 84.8 kg Body Mass Index 26.8 Comments: The patient is awake, alert and oriented and in no acute distress. Pupils are equal. The neck is supple. Chest: Clear to auscultation bilaterally. Cor: RR with no gallop, click nor murmur Abd: soft with normo-active bowel sounds. There are no masses, no tenderness and no guarding. Extremities: Trace edema left leg as anticipated. IRU A/P (1) Intertrochanteric fracture of left femur Qualifiers: Encounter type: initial encounter Fracture type: closed Fracture alignment: nondisplaced Qualified Code(s): S72.145A - Nondisplaced intertrochanteric fracture of left femur, initial encounter for closed fracture Problem details: IM nail left hip with short Gamma Nail by Dr Weiner 07/09/17. Current visit: No Status: Acute Patient is making good progress. He is able to ambulate. ADLs are improving. Pain is adequately controlled. (2) Hypertension Qualifiers: Hypertension type: essential hypertension Qualified Code(s): I10 - Essential (primary) hypertension Current visit: No Status: Acute Blood pressures appear to be adequately controlled and are not hypotensive. (3) Presence of permanent cardiac pacemaker Current visit: Yes Status: Acute (4) Hyperglycemia Current visit: Yes Status: Resolved (5) Vaso vagal episode Current visit: Yes Status: Resolved DVT Prophylaxis: Lovenox Resuscitation Status: Full Code - Course Hospital Course: Oscar Abbasi MD: 07/13/17 11:00 Patient has the anticipated amount of pain in the left femur. Had a syncopal spell this morning. Appears to be vasovagal. Initial blood pressure 80 but now back up into the 116 range. Saturations normal. 07/17/17 11:53 He has improved with regard to transfers and ambulation. ADLs are improved. No further syncopal spells and no further lightheadedness/hypotension. Pacemaker function appears to be normal. Telemetry remains in place. Blood sugars are normal. 07/18/17 11:47 No further episodes of lightheadedness or syncope. He is making good progress with therapy. - Interventions to Obtain Goals PT Treatment Plan: Balance/Proprioception, Functional Activities, Gait Training , Patient/Family Education, Therapeutic Exercise OT Treatment Plan: ADL (Basic Care), Balance Training, IADL, Pt./Family Education
[2017-07-18] MEDS: ENOXAPARIN 40 MG/0.4 ML INJECTION SQ SCH (13:29)
--- NOTE | 2017-07-18 20:26 | Cardiology Progress Note ---
Subjective Interval history: doing well . tired from exercising for over 30 min . denies angina dyspena or dizziness. no pain or d/c from ppm incision Exam Vital signs: Temperature 98.2 F 07/18/17 15:00 Pulse Rate 89 07/18/17 15:00 Respiratory Rate 18 07/18/17 15:00 Blood Pressure 103/65 07/18/17 15:00 Pulse Oximetry 90 07/18/17 15:00 - Constitutional no acute distress - Routine HEENT Exam Head: Present: normocephalic, atraumatic Eye: Present: EOMI, PERRL ENT: Present: mucous membranes moist - Routine Neck Exam Present: normal carotid upstroke. Absent: JVD, carotid bruit, lymphadenopathy, thyromegaly - Routine Respiratory Exam Present: CTA bilaterally - Routine Cardiovascular Exam Present: RRR - Routine Abdominal Exam Present: soft, normoactive bowel sounds, non distended, non tender - Routine Extremities Exam Present: no edema. Absent: cyanosis, clubbing - Routine Skin Exam Present: intact, erythema, wounds (mild erythema lateral corner of PPm incision w/o draiange or tenderness. wound is well approximated). Absent: cyanosis - Routine Neurological Exam Present: alert, oriented X3, CN II-XII intact, moving all extremities, vision grossly intact, hearing grossly intact, normal speech. Absent: motor deficit, hemineglect, facial asymmetry - Routine Psychiatric Exam Present: normal affect, normal thought process, cooperative. 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 Hospital Course Summary Disclaimer: The visit summary below is not to be considered part of the above Progress Note. Hospital Course: 07/13/17 Impression S/P- Cephalomedullary fixation of left intertrochanteric hip fracture S/P-cardiac pacemaker placement Acute blood loss anemia-stable Coronary artery disease Hypertension Hyperlipidemia Paroxysmal atrial fibrillation Plan Agree with admission to inpatient rehabilitation unit under the care of Dr. Abbasi for strengthening and postoperative function. Patient is to continue post pacemaker placement precautions with sling to left arm. He is prophylactically on minocycline for 7 days. Resume Lovenox subcutaneous daily for postoperative DVT prophylaxis. End date . Monitor for evidence of post-pacemaker hematoma. Continue to monitor routine labs, hemoglobin this morning is stable at 9.8. Preoperatively, patient's hemoglobin was 14.3. [place] as needed for Post-op pain Norvasc for blood pressure control Miralax and MOM for bowel motivation Encourage work with PT and OT for ongoing postoperative strengthening and improve function. Does reside independently and is the caregiver of his . The hospitalist services will continue to follow patient during his day in the [facility]. His existing comorbidities. At time of discharge medical care will return to his primary care provider, Dr Gabbi Villareal 07/14/[address] Echavarria consulted to continue to follow patient given that he did have a syncopal episode. Will ask his recommendations for BP control. Currently on Norvasc. Orthostatic Vitals signs were ordered yesterday however have not been done. Discussed with nursing staff. Continue Lovenox subcutaneous daily for postoperative DVT prophylaxis. End date 08/09/17. Encourage work with PT and OT for ongoing postoperative strengthening and improve function.
[2017-07-18] MEDS: SALINE FLUSH 10ml SYRINGE IV PRN (22:11)
[2017-07-18] MEDS: ATORVASTATIN 40 MG TABLET PO SCH (22:12)
[2017-07-19] MEDS: ENOXAPARIN 40 MG/0.4 ML INJECTION SQ SCH (08:44)
[2017-07-19] MEDS: POLYETHYL GLYCOL 3350 17gm PACKET PO SCH (08:45)
[2017-07-19] MEDS: CALCIUM 600 + VIT D 400 TABLET PO SCH ×2 (08:45→20:31)
[2017-07-19] MEDS: ASPIRIN *EC* 81 MG TABLET PO SCH (08:45)
[2017-07-19] MEDS: HYDROCODONE/APAP 5mg/325mg TABLET PO PRN ×2 (08:45→17:31)
[2017-07-19] MEDS: SENNA + DOCUSATE TABLET PO SCH ×2 (08:45→20:31)
--- NOTE | 2017-07-19 11:16 | IRU Progress Note ---
- Subjective/Serverity of Illness Mr. Liang states that his pain is adequately controlled. Denies any lightheadedness. Dr. Echavarria his reassessed. He is on oral Keflex now. Rhythm is stable and he is stable with regard to the pacemaker function. Exam Vital Signs: Temperature 98.3 F 07/19/17 07:00 Pulse Rate 74 07/19/17 08:00 Respiratory Rate 17 07/19/17 07:00 Blood Pressure 137/68 07/19/17 07:00 Pulse Oximetry 98 07/19/17 07:00 Height/Weight/BMI: Height 1.78 m Weight 77.3 kg Body Mass Index 26.8 Comments: The patient is awake, alert and oriented and in no acute distress. Pupils are equal. The neck is supple. Chest: Clear to auscultation bilaterally. Cor: RR with no gallop, click nor murmur Abd: soft with normo-active bowel sounds. There are no masses, no tenderness and no guarding. Extremities: Trace edema left leg.. IRU A/P (1) Intertrochanteric fracture of left femur Qualifiers: Encounter type: initial encounter Fracture type: closed Fracture alignment: nondisplaced Qualified Code(s): S72.145A - Nondisplaced intertrochanteric fracture of left femur, initial encounter for closed fracture Problem details: IM nail left hip with short Gamma Nail by Dr Weiner 07/09/17. Current visit: No Status: Acute Pain is adequately controlled. Anticipate safe transition to home environment tomorrow. (2) Hypertension Qualifiers: Hypertension type: essential hypertension Qualified Code(s): I10 - Essential (primary) hypertension Current visit: No Status: Acute Blood pressures are well controlled on a few her blood pressure medications. (3) Presence of permanent cardiac pacemaker Current visit: Yes Status: Acute (4) Hyperglycemia Current visit: Yes Status: Resolved (5) Vaso vagal episode Current visit: Yes Status: Resolved DVT Prophylaxis: Lovenox Resuscitation Status: Full Code - Course Hospital Course: Oscar Abbasi MD: 07/13/17 11:00 Patient has the anticipated amount of pain in the left femur. Had a syncopal spell this morning. Appears to be vasovagal. Initial blood pressure 80 but now back up into the 116 range. Saturations normal. 07/17/17 11:53 He has improved with regard to transfers and ambulation. ADLs are improved. No further syncopal spells and no further lightheadedness/hypotension. Pacemaker function appears to be normal. Telemetry remains in place. Blood sugars are normal. 07/18/17 11:47 No further episodes of lightheadedness or syncope. He is making good progress with therapy. 07/19/17 11:16 Patient is making good progress with therapy. No further evidence of syncope/presyncope. Pacemaker functioning normally. - Interventions to Obtain Goals PT Treatment Plan: Balance/Proprioception, Functional Activities, Gait Training , Patient/Family Education, Therapeutic Exercise OT Treatment Plan: ADL (Basic Care), Balance Training, IADL, Pt./Family Education
[2017-07-19] MEDS: SALINE FLUSH 10ml SYRINGE IV PRN (17:31)
--- NOTE | 2017-07-19 19:46 | Cardiology Progress Note ---
Subjective Interval history: doing very well . "Ready to run a marathon" jokingly. He denies angina dyspena or dizziness. no pain or d/c from ppm incision. No fever no dizziness Exam Vital signs: Temperature 98.4 F 07/19/17 15:00 Pulse Rate 67 07/19/17 15:46 Respiratory Rate 14 07/19/17 15:00 Blood Pressure 100/53 07/19/17 15:00 Pulse Oximetry 95 07/19/17 15:00 - Constitutional no acute distress, well developed, cooperative - Routine HEENT Exam Head: Present: normocephalic, atraumatic Eye: Present: EOMI, PERRL ENT: Present: mucous membranes moist - Routine Neck Exam Present: normal carotid upstroke. Absent: JVD, carotid bruit, lymphadenopathy, thyromegaly - Routine Chest/Breast/Axilla Exam Chest wall: Present: pacemaker (very slight erythema at the corner his pacemaker well approximated without any exudate or tenderness) Breast: Absent: tenderness, induration, mass - Routine Respiratory Exam Present: CTA bilaterally - Routine Cardiovascular Exam Present: RRR - Routine Abdominal Exam Present: soft, normoactive bowel sounds, non distended, non tender. Absent: organomegaly - Routine Extremities Exam Present: no edema, pulses intact, normal capillary refill. Absent: cyanosis, clubbing, edema - Routine Skin Exam Present: intact, dry. Absent: cyanosis, erythema - Routine Neurological Exam Present: alert, oriented X3, CN II-XII intact, moving all extremities, vision grossly intact, hearing grossly intact, normal speech. Absent: motor deficit, facial asymmetry - Routine Psychiatric Exam Present: normal affect, normal thought process, cooperative, good insight, good judgment. Absent: depressed, anxious Results 07/14/17 04:45 07/14/17 04:45 Intake and Output 07/19/17 07/19/17 07/19/17 06:59 14:59 22:59 Intake Total 440 / 440 240 / 240 Balance 440 / 440 240 / 240 Intake: Oral 440 / 440 240 / 240 Other: Urine Appearance Clear Clear Clear Urine Color Yellow Yellow Pale Urine Odor Normal Normal Normal # Voids 1 1 1 - EKG Interpretation EKG: sinus rhythm, not changed from: (V paced) Assessment and Plan - Attestation Attestation Narrative: 07/19/17 19:37 Permanent pacemaker for intermittent second-degree and third-degree AV block Coronary artery disease with prior CABG 3 in 1986 Orthostatic hypotension/vasovagal resolved Hypertension Dyslipidemia Good regimen stable from cardiac standpoint . Signing off . . He wants to follow with me for cardiology . He is advised to call if there is worsening redness or if there is discharge from his pacemaker or fever ,chills. Will see in the office in 2-4 weeks Hospital Course Summary Disclaimer: The visit summary below is not to be considered part of the above Progress Note. Hospital Course: 07/13/17 Impression S/P- Cephalomedullary fixation of left intertrochanteric hip fracture S/P-cardiac pacemaker placement Acute blood loss anemia-stable Coronary artery disease Hypertension Hyperlipidemia Paroxysmal atrial fibrillation Plan Agree with admission to inpatient rehabilitation unit under the care of Dr. Abbasi for strengthening and postoperative function. Patient is to continue post pacemaker placement precautions with sling to left arm. He is prophylactically on minocycline for 7 days. Resume Lovenox subcutaneous daily for postoperative DVT prophylaxis. End date . Monitor for evidence of post-pacemaker hematoma. Continue to monitor routine labs, hemoglobin this morning is stable at 9.8. Preoperatively, patient's hemoglobin was 14.3. [place] as needed for Post-op pain Norvasc for blood pressure control Miralax and MOM for bowel motivation Encourage work with PT and OT for ongoing postoperative strengthening and improve function. Does reside independently and is the caregiver of his . The hospitalist services will continue to follow patient during his day in the [facility]. His existing comorbidities. At time of discharge medical care will return to his primary care provider, Dr Gabbi Villareal 07/14/[address] Echavarria consulted to continue to follow patient given that he did have a syncopal episode. Will ask his recommendations for BP control. Currently on Norvasc. Orthostatic Vitals signs were ordered yesterday however have not been done. Discussed with nursing staff. Continue Lovenox subcutaneous daily for postoperative DVT prophylaxis. End date 08/09/17. Encourage work with PT and OT for ongoing postoperative strengthening and improve function.
[2017-07-19] MEDS: ATORVASTATIN 40 MG TABLET PO SCH (20:31)
--- NOTE | 2017-07-19 20:47 | Progress Note ---
- Date 07/19/17 Subjective: Mr. Liang was seen in anticipation of discharge tomorrow. He reports that he is feeling well and ambulating with a walker. He continues to have hip pain but it's adequately controlled with medications. He's had no further syncopal episodes and denies lightheadedness or discomfort at pacemaker site. He denied dyspnea. Objective Vital signs: Temperature 98.2 F 07/19/17 19:50 Pulse Rate 63 07/19/17 19:50 Respiratory Rate 20 07/19/17 19:50 Blood Pressure 116/61 07/19/17 19:50 Pulse Oximetry 95 07/19/17 19:50 NAD, alert, fluent speech Conjugate gaze, sclera anicteric Respirations nonlabored, breath sounds clear Pacemaker site left upper chest wall clean/dry, Steri-Strips remain in place Regular rhythm, S1-S2 Abdomen soft, nontender Oriented 3 Height/Weight/BMI: Height 1.78 m Weight 77.3 kg Body Mass Index 26.8 Results - Labs CBC & Chem 7: 07/14/17 04:45 07/14/17 04:45 Assessment and Plan (1) S/p left hip fracture Problem details: Left intertrochanteric fracture 07/08/17 Current visit: Yes Status: Acute (2) S/P cardiac pacemaker procedure Problem details: 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 Abbasi-discharge plan tomorrow. Hemodynamically stable. Last hemoglobin was on 07/14, will update in a.m. Switched from niacin/pravastatin to atorvastatin by Dr. Echavarria. Tolerating metoprolol well. Will assist with discharge medications tomorrow; should follow up with Dr. Echavarria 2-4 weeks regarding pacemaker. DVT Prophylaxis: Lovenox Resuscitation Status: Full Code Hospital Course Summary Disclaimer: The visit summary below is not to be considered part of the above Progress Note. Hospital Course: 07/13/17 Impression S/P- Cephalomedullary fixation of left intertrochanteric hip fracture S/P-cardiac pacemaker placement Acute blood loss anemia-stable Coronary artery disease Hypertension Hyperlipidemia Paroxysmal atrial fibrillation Plan Agree with admission to inpatient rehabilitation unit under the care of Dr. Abbasi for strengthening and postoperative function. Patient is to continue post pacemaker placement precautions with sling to left arm. He is prophylactically on minocycline for 7 days. Resume Lovenox subcutaneous daily for postoperative DVT prophylaxis. End date . Monitor for evidence of post-pacemaker hematoma. Continue to monitor routine labs, hemoglobin this morning is stable at 9.8. Preoperatively, patient's hemoglobin was 14.3. [place] as needed for Post-op pain Norvasc for blood pressure control Miralax and MOM for bowel motivation Encourage work with PT and OT for ongoing postoperative strengthening and improve function. Does reside independently and is the caregiver of his . The hospitalist services will continue to follow patient during his day in the [facility]. His existing comorbidities. At time of discharge medical care will return to his primary care provider, Dr Gabbi Villareal 07/14/[address] Echavarria consulted to continue to follow patient given that he did have a syncopal episode. Will ask his recommendations for BP control. Currently on Norvasc. Orthostatic Vitals signs were ordered yesterday however have not been done. Discussed with nursing staff. Continue Lovenox subcutaneous daily for postoperative DVT prophylaxis. End date 08/09/17. Encourage work with PT and OT for ongoing postoperative strengthening and improve function. 07/19/17 Doing well, discussed with Dr. Abbasi-discharge plan tomorrow. Hemodynamically stable. Last hemoglobin was on 07/14, will update in a.m. Switched from niacin/pravastatin to atorvastatin by Dr. Echavarria. Tolerating metoprolol well. Will assist with discharge medications tomorrow; should follow up with Dr. Echavarria 2-4 weeks regarding pacemaker.
[2017-07-20] MEDS: HYDROCODONE/APAP 5mg/325mg TABLET PO PRN ×3 (05:33→18:43)
[2017-07-20] MEDS: SENNA + DOCUSATE TABLET PO SCH (08:39)
[2017-07-20] MEDS: CALCIUM 600 + VIT D 400 TABLET PO SCH (08:39)
[2017-07-20] MEDS: ASPIRIN *EC* 81 MG TABLET PO SCH (08:40)
[2017-07-20] MEDS: SALINE FLUSH 10ml SYRINGE IV PRN (08:40)
[2017-07-20] MEDS: ENOXAPARIN 40 MG/0.4 ML INJECTION SQ SCH (08:40)
[2017-07-20] MEDS: POLYETHYL GLYCOL 3350 17gm PACKET PO SCH ×2 (08:41→08:43)
--- NOTE | 2017-07-20 10:29 | IRU Progress Note ---
- Subjective/Serverity of Illness Mr. Liang is doing exceptionally well with regard to ambulation, transfers and ADLs. Has been seen by Dr. Echavarria and Dr. Davila. Anticipates going home today. He has no questions at present. Pain is adequately controlled. Inspection of the pacemaker site shows no inflammation. He had had problems with lightheadedness and syncope but that has not recurred. Exam Vital Signs: Temperature 98.2 F 07/20/17 09:16 Pulse Rate 73 07/20/17 09:16 Respiratory Rate 20 07/19/17 19:50 Blood Pressure 111/63 07/20/17 09:16 Pulse Oximetry 97 07/20/17 09:16 Height/Weight/BMI: Height 1.78 m Weight 77.3 kg Body Mass Index 26.8 Comments: The patient is awake, alert and oriented and in no acute distress. Pupils are equal. The neck is supple. Chest: Clear to auscultation bilaterally. Exam of pacemaker site shows no inflammation. Minimal bruising. Cor: RR with no gallop, click nor murmur Abd: soft with normo-active bowel sounds. There are no masses, no tenderness and no guarding. Extremities: Trace to 1+ edema on the operated side as anticipated. IRU A/P (1) Intertrochanteric fracture of left femur Qualifiers: Encounter type: initial encounter Fracture type: closed Fracture alignment: nondisplaced Qualified Code(s): S72.145A - Nondisplaced intertrochanteric fracture of left femur, initial encounter for closed fracture Problem details: IM nail left hip with short Gamma Nail by Dr Weiner 07/09/17. Current visit: No Status: Acute He has been able to improve his functional ability tremendously. He is stable for dismissal today. (2) Hypertension Qualifiers: Hypertension type: essential hypertension Qualified Code(s): I10 - Essential (primary) hypertension Current visit: No Status: Acute Blood pressure is controlled. (3) Presence of permanent cardiac pacemaker Current visit: Yes Status: Acute (4) Hyperglycemia Current visit: Yes Status: Resolved (5) Vaso vagal episode Current visit: Yes Status: Resolved DVT Prophylaxis: Lovenox Resuscitation Status: Full Code - Course Hospital Course: Oscar Abbasi MD: 07/13/17 11:00 Patient has the anticipated amount of pain in the left femur. Had a syncopal spell this morning. Appears to be vasovagal. Initial blood pressure 80 but now back up into the 116 range. Saturations normal. 07/17/17 11:53 He has improved with regard to transfers and ambulation. ADLs are improved. No further syncopal spells and no further lightheadedness/hypotension. Pacemaker function appears to be normal. Telemetry remains in place. Blood sugars are normal. 07/18/17 11:47 No further episodes of lightheadedness or syncope. He is making good progress with therapy. 07/19/17 11:16 Patient is making good progress with therapy. No further evidence of syncope/presyncope. Pacemaker functioning normally. 07/20/17 10:29 Patient is stable for dismissal today. - Interventions to Obtain Goals PT Treatment Plan: Balance/Proprioception, Functional Activities, Gait Training , Patient/Family Education, Therapeutic Exercise OT Treatment Plan: ADL (Basic Care), Balance Training, IADL, Pt./Family Education
--- NOTE | 2017-07-20 13:57 | Discharge Summary ---
Discharge Information Date of admission: 07/12/17 14:51 Anticipated date of discharge: 07/20/17 Attending Physician: Oscar Abbasi MD Consults: 07/12/17 15:39 Physician Consult [CONS] Routine Consulting Provider: Jose Desir Reason For Exam: Medical management Ordering Provider has Notified Animal Skinner: Yes 07/14/17 13:38 Physician Consult [CONS] Routine Consulting Provider: Laure Echavarria Reason For Exam: recent pacemaker placer Ordering Provider has Notified Animal Skinner: Yes - Discharge Diagnosis (1) Intertrochanteric fracture of left femur Status: Acute (2) Hypertension Status: Acute (3) Presence of permanent cardiac pacemaker Status: Acute (4) Hyperglycemia Status: Resolved (5) Vaso vagal episode Status: Resolved 1. Intertrochanteric fracture left hip, status post operative repair 2. Recent placement of permanent pacemaker 3. Vasovagal episode while on rehabilitation with hypotension 4. Benign essential hypertension 5. Urinary retention-resolved 6. Acute blood loss anemia - Laboratory Labs: 07/20/17 04:37 07/14/17 04:45 History of Present Illness HPI: 07/20/17 13:56 Mr. Liang is the primary caregiver for his . They were out to eat at a local restaurant. In an effort to assist her, the patient fell resulting in a left hip fracture. He was taken to surgery by Dr. Weiner on 07/09/2017 for repair of left intertrochanteric hip fracture. He did experience acute blood loss anemia on the acute side with an initial hemoglobin of 14.3 then with trending down to 9.8 subsequently. On 07/10/2017 he had a lightheaded spell and lost consciousness for 20 seconds. He did have a pulse in the 30s according to the nurse. Dr. Echavarria was consulted. Ultimately the patient was felt to have complete heart block at times according to Dr. Echavarria. Had another episode of lightheadedness lasting a few seconds on 07/11/2017. Pacemaker was placed on the afternoon of 07/11/2017 which he tolerated well. Hospital Course This is a general summary of the patient's hospital course. For more details refer to the complete medical record. Mr. Liang was admitted to the inpatient rehabilitation unit at [facility] on 07/12/2017 for a multidisciplinary intensive program of physical therapy, occupational therapy and medical management. He was followed by Dr. Echavarria, as well as the hospitalist service and the medical transcriber of inpatient rehabilitation. From a medical standpoint he had another episode of lightheadedness with blood pressures in the 80s shortly after having a bowel movement. He was not on the monitor at that time. He did not completely pass out. Subsequent telemetry revealed normal functioning of pacemaker. Interrogation of the pacemaker by Dr. Echavarria failed to reveal any abnormalities in terms of failure to sense or failure to capture. Subsequent to that he had no further episodes of lightheadedness nor syncope. He did experience acute blood loss anemia at the time of admission to rehabilitation but did not have further blood loss evident. Hemoglobin was monitored and was 10.8 on the rehabilitation unit. He was seen by occupational therapy. Eating initially with standby assistance and ultimately was independent functioning. Grooming was standby assistance initially and ultimately independent. Bathing ability was initially maximum assistance and ultimately modified independent. Upper body dressing with standby assistance and ultimately independent. Lower body dressing was initially maximum assistance and ultimately modified independent. Toileting assistance was initially total assistance and ultimately modified independent. Toilet transfer assistance was total assistance initially and modified independent subsequently. Bed/chair/wheelchair transfers were initially minimal assistance and ultimately modified independent. He was seen by physical therapy. Bed/chair/wheelchair transfers for physical therapy initially were accomplished with total assistance of at least 2 or more people. Ultimately he was able to perform this at a modified independent level. Toilet assistance was performed at modified independent functioning. Car transfers were initially unsafe but ultimately he could perform this at modified independent level. Ambulating ability was initially with total assistance and he can only walk 5 feet. Ultimately he walked between 204 100 feet with modified independent functioning with a front-wheeled walker. He was initially unsafe to climb stairs but ultimately could climb 12 steps with modified independent functioning. Patient plans to follow-up with Dr. Eric Echavarria regarding his pacemaker. He will see his personal physician Dr. Darby Villareal in follow-up for his other medical conditions. At the time dismissal he is felt to be stable to return to his home. Hospital course: 07/13/17 Impression S/P- Cephalomedullary fixation of left intertrochanteric hip fracture S/P-cardiac pacemaker placement Acute blood loss anemia-stable Coronary artery disease Hypertension Hyperlipidemia Paroxysmal atrial fibrillation Plan Agree with admission to inpatient rehabilitation unit under the care of Dr. Abbasi for strengthening and postoperative function. Patient is to continue post pacemaker placement precautions with sling to left arm. He is prophylactically on minocycline for 7 days. Resume Lovenox subcutaneous daily for postoperative DVT prophylaxis. End date . Monitor for evidence of post-pacemaker hematoma. Continue to monitor routine labs, hemoglobin this morning is stable at 9.8. Preoperatively, patient's hemoglobin was 14.3. [place] as needed for Post-op pain Norvasc for blood pressure control Miralax and MOM for bowel motivation Encourage work with PT and OT for ongoing postoperative strengthening and improve function. Does reside independently and is the caregiver of his . The hospitalist services will continue to follow patient during his day in the [facility]. His existing comorbidities. At time of discharge medical care will return to his primary care provider, Dr Gabbi Villareal 07/14/[address] Echavarria consulted to continue to follow patient given that he did have a syncopal episode. Will ask his recommendations for BP control. Currently on Norvasc. Orthostatic Vitals signs were ordered yesterday however have not been done. Discussed with nursing staff. Continue Lovenox subcutaneous daily for postoperative DVT prophylaxis. End date 08/09/17. Encourage work with PT and OT for ongoing postoperative strengthening and improve function. 07/19/17 Doing well, discussed with Dr. Abbasi-discharge plan tomorrow. Hemodynamically stable. Last hemoglobin was on 07/14, will update in a.m. Switched from niacin/pravastatin to atorvastatin by Dr. Echavarria. Tolerating metoprolol well. Will assist with discharge medications tomorrow; should follow up with Dr. Echavarria 2-4 weeks regarding pacemaker. Discharge Plan - Med Rec/Dispo Referrals/Follow Up: Darby Villareal MD [Other] (Dr. Khalif Villareal on 08/03/17 at 10:30 am for Hosp. follow-up. [address] [address] ) Laure Echavarria MD [Physician] - (Dr. Cameron Echavarria on 07/24/17 at 3:15 pm for follow-up. [facility] [address] [facility] [address] [place] [address]) Phillip Zeng PA [Physician Map Mounter] - (GEORGIE Chaney 07/24/17 at 2:00 pm for Post-Op follow-up. [facility] [address] [place] [address] [address] [place] [address]) Prescriptions: New Acetaminophen [Tylenol] 325 - 650 mg PO Q5H PRN tablet PRN Reason: Discomfort CephALEXin [Keflex] 500 mg PO TID 4 Days #12 cap Milk of Magnesia [Mom] 30 ml PO DAILY PRN udc PRN Reason: Constipation Hydrocodone/APAP 5/325 [[place] 5/325] 1 tab PO Q6H PRN #60 tab PRN Reason: Pain Continue Aspirin [Aspir 81] 81 mg PO DAILY #0 tab Pravastatin [Pravachol] 10 mg PO HS Acetaminophen [Tylenol] 325 - 650 mg PO Q5H PRN tablet PRN Reason: Discomfort Senna + Docusate [Senna Plus Tablet] 1 tab PO BID tablet PEG 3350 17gm PACKET [Miralax] 17 gm PO DAILY packet Niacin ER [Niaspan] 1,000 mg PO BID tablet Milk of Magnesia [Mom] 30 ml PO DAILY PRN udc PRN Reason: Constipation Enoxaparin Sodium [Lovenox] 40 mg SQ DAILY #17 syringe Amlodipine Besylate [Norvasc] 2.5 mg PO BID #0 tab Nitroglycerin 0.4 mg PO Q5M PRN PRN Reason: Chest Pain Calcium 600 + D [Caltrate + D] 1 tab PO BID tablet Metoprolol Succinate (XL) [Toprol Xl] 12.5 mg PO DAILY #30 tab Discontinued Bisacodyl Supp [Dulcolax] 10 mg RECTALLY DAILY PRN supp PRN Reason: Constipation Niacin (Inositol Niacinate) [Niacin 500 mg Capsule] 1,000 mg PO BID Hydrocodone/APAP 5/325 [[place] 5/325] 1 tab PO Q6H PRN tablet PRN Reason: Pain Minocycline [Minocin] 100 mg PO BID capsule - Disposition 01 Discharged Home, Self-Care - Dismissal Complete Discharge Instructions are:: Complete
[2017-07-20 16:07] VITALS: RESP 18; TEMP 97.7; O2SAT 96
[2017-07-20 16:09] VITALS: BP 112/66; PULSE 80
== END 2017-07-20 18:48 | disposition home health service (06) | DRG 560 ==
PROVIDERS: ADMIT Internal Medicine; ATTEND Internal Medicine